=== PATIENT | female | born 1950 | race Asian ===

== ENCOUNTER 2018-05-13 10:58 | Inpatient (IN) | payer SELFPAY ==
[~2018-05-13] VITALS: Ht 162.6 cm; Wt 54.9 kg
[2018-05-13 11:01] VITALS: BP 171/75
[2018-05-13] MEDS ORDERED: Sodium Chloride 500ML 500 ML IV ONE (11:25)
[2018-05-13 11:54] LABS: APPEARANCE,URINE CLEAR; BILIRUBIN, URINE NEGATIVE (NEGATIVE); GLUCOSE, URINE (UA) NEGATIVE (NEGATIVE); KETONES,URINE 2+ (NEGATIVE); LEUKOCYTE ESTERASE ,URINE 3+ (NEGATIVE); NITRITE,URINE NEGATIVE (NEGATIVE); PH,URINE 6 (4.5-8.0); PROTEIN,URINE 1+ (NEGATIVE); UROBILINOGEN,URINE NORMAL MG/DL (0.0-1.0)
[2018-05-13 11:54] LABS: BASOPHILS % (AUTO) 0.8 % (0.0-2.0); EOSINOPHILS % (AUTO) 0.6 % (0.0-3.0); HEMATOCRIT 43.2 % (37.0-47.0); HEMOGLOBIN 14.3 G/DL (12.0-16.0); LYMPHOCYTES % (AUTO) 12.2 % (20.0-45.0); MEAN CORPUSCULAR VOLUME 88 FL (80-99); MONOCYTES % (AUTO) 3.8 % (1.0-10.0); NEUTROPHILS % (AUTO) 82.7 % (45.0-75.0); PLATELET COUNT 245 K/UL (150-450); RED BLOOD COUNT 4.91 M/UL (4.20-5.40); WHITE BLOOD COUNT 5.8 K/UL (4.8-10.8)
[2018-05-13 11:56] LABS: COLOR,URINE YELLOW
[2018-05-13 12:05] LABS: ANION GAP 9 mmol/L (5-15); BLOOD UREA NITROGEN 16 mg/dL (7-18); CALCIUM 8.8 MG/DL (8.5-10.1); CARBON DIOXIDE 26 MMOL/L (21-32); CHLORIDE 105 MMOL/L (98-107); CREATININE 0.6 MG/DL (0.55-1.30); POTASSIUM 3.6 MMOL/L (3.5-5.1); SODIUM 140 MMOL/L (136-145)
[2018-05-13 12:19] LABS: ALANINE AMINOTRANSFERASE 14 U/L (12-78); ALBUMIN 3.4 G/DL (3.4-5.0); ALBUMIN/GLOBULIN RATIO 0.9 (1.0-2.7); ALKALINE PHOSPHATASE 85 U/L (46-116); ASPARTATE AMINO TRANSFERASE 15 U/L (15-37); BILIRUBIN,TOTAL 0.4 MG/DL (0.2-1.0); CKMB 0.7 NG/ML (0.0-3.6); CREATINE KINASE 58 U/L (26-308)
[2018-05-13 12:41] VITALS: BP 160/79
[2018-05-13] MEDS ORDERED: cefTRIAXone 1 GM in NS 55 ML IVPB ONE (13:00)
[2018-05-13] MEDS ORDERED: Isovue-300 100ml vial INJ PRN (13:00)
--- NOTE | 2018-05-13 13:05 | Emergency Room Report ---
History of Present Illness General Chief Complaint: Abdominal Pain Source: Patient, Medical Record Present Illness HPI Patient present with complaints of epigastric abdominal pain increased nausea vomiting ongoing for the past one to 2 days denies any diarrhea and eyes any chest pain or shortness of breath patient had some questionable flank discomfort as well however denies any dysuria Denies any chest pain denies any trauma Pain is 4 out of 10 diffuse in nature at this time Allergies: Coded Allergies: No Known Allergies (Unverified , 05/13/18) Patient History Past Medical History: see triage record Pertinent Family History: none Reviewed Nursing Documentation: PMH: Agreed; PSxH: Agreed Nursing Documentation-PM Past Medical History: No History, Except For Hx Cancer: Yes - Stomach cancer surgery 20 years ago; Review of Systems All Other Systems: negative except mentioned in HPI Physical Exam Vital Signs Date Time Temp Pulse Resp B/P (MAP) Pulse Ox O2 Delivery O2 Flow Rate FiO2 05/13/18 10:52 97.3 84 18 150/86 98 Room Air 97.3 Sp02 EP Interpretation: reviewed, normal General Appearance: mild distress - Appears uncomfortable, in pain Head: normocephalic, atraumatic Eyes: bilateral eye PERRL, bilateral eye EOMI ENT: hearing grossly normal, normal pharynx, TMs + canals normal, uvula midline Neck: full range of motion, supple, no meningismus, no bony tend Respiratory: lungs clear, normal breath sounds, no rhonchi, no respiratory distress, no retraction, no accessory muscle use Cardiovascular #1: normal peripheral pulses, regular rate, rhythm, no edema, no gallop, no JVD, no murmur Gastrointestinal: normal bowel sounds, soft, no mass, no organomegaly, non- distended, no guarding, no hernia, no pulsatile mass, no rebound, tenderness - Epigastric region Genitourinary: no CVA tenderness Musculoskeletal: normal inspection Neurologic: oriented x3, responsive, legal cashier III-XII nml as tested, motor strength/ tone normal, sensory intact Psychiatric: mood/affect normal Skin: normal color, no rash, warm/dry, palpation normal Lymphatic: normal inspection, no adenopathy Medical Decision Making Diagnostic Impression: Primary Impression: Cholecystitis ER Course With the history exam and presentation, multiple differentials considered, including but not limited to appendicitis, gastritis, cholecystitis, diverticulitis Given the patient's presentation and discomfort she is provided with pain medicine extensive blood work is initiated Patient's white blood cell count was elevated CAT scan at this time reveals findings consistent and concerning for cholecystitis Patient is provided with further antibiotics IV hydration and requires inpatient care Labs Test 05/13/18 11:40 05/13/18 11:43 White Blood Count 5.8 K/UL (4.8-10.8) Red Blood Count 4.91 M/UL (4.20-5.40) Hemoglobin 14.3 G/DL (12.0-16.0) Hematocrit 43.2 % (37.0-47.0) Mean Corpuscular Volume 88 FL (80-99) Mean Corpuscular Hemoglobin 29.1 PG (27.0-31.0) Mean Corpuscular Hemoglobin Concent 33.1 G/DL (32.0-36.0) Red Cell Distribution Width 11.0 % (11.6-14.8) Platelet Count 245 K/UL (150-450) Mean Platelet Volume 7.0 FL (6.5-10.1) Neutrophils (%) (Auto) 82.7 % (45.0-75.0) Lymphocytes (%) (Auto) 12.2 % (20.0-45.0) Monocytes (%) (Auto) 3.8 % (1.0-10.0) Eosinophils (%) (Auto) 0.6 % (0.0-3.0) Basophils (%) (Auto) 0.8 % (0.0-2.0) Sodium Level 140 MMOL/L (136-145) Potassium Level 3.6 MMOL/L (3.5-5.1) Chloride Level 105 MMOL/L (98-107) Carbon Dioxide Level 26 MMOL/L (21-32) Anion Gap 9 mmol/L (5-15) Blood Urea Nitrogen 16 mg/dL (7-18) Creatinine 0.6 MG/DL (0.55-1.30) Estimat Glomerular Filtration Rate > 60 mL/min (>60) Glucose Level 131 MG/DL (74-106) Calcium Level 8.8 MG/DL (8.5-10.1) Total Bilirubin 0.4 MG/DL (0.2-1.0) Aspartate Amino Transf (AST/SGOT) 15 U/L (15-37) Alanine Aminotransferase (ALT/SGPT) 14 U/L (12-78) Alkaline Phosphatase 85 U/L (46-116) Total Creatine Kinase 58 U/L (26-308) Creatine Kinase MB 0.7 NG/ML (0.0-3.6) Creatine Kinase MB Relative Index 1.2 Troponin I 0.000 ng/mL (0.000-0.056) Total Protein 7.2 G/DL (6.4-8.2) Albumin 3.4 G/DL (3.4-5.0) Globulin 3.8 g/dL Albumin/Globulin Ratio 0.9 (1.0-2.7) Lipase 106 U/L (73-393) Urine Color Yellow Urine Appearance Clear Urine pH 6 (4.5-8.0) Urine Specific [place] 1.020 (1.005-1.035) Urine Protein 1+ (NEGATIVE) Urine Glucose (UA) Negative (NEGATIVE) Urine Ketones 2+ (NEGATIVE) Urine Blood 2+ (NEGATIVE) Urine Nitrite Negative (NEGATIVE) Urine Bilirubin Negative (NEGATIVE) Urine Urobilinogen Normal MG/DL (0.0-1.0) Urine Leukocyte Esterase 3+ (NEGATIVE) Urine RBC 2-4 /HPF (0 - 2) Urine WBC 10-15 /HPF (0 - 2) Urine Squamous Epithelial Cells Few /LPF (NONE/OCC) Urine Bacteria Few /HPF (NONE) Urine Mucus Few /LPF (NONE/OCC) Rhythm Strip Diag. Results EP Interpretation: yes Rate: 66 Rhythm: NSR, no PVC's, no ectopy CT/MRI/US Diagnostic Results CT/MRI/US Diagnostic Results : Impression CT abdomen pelvisImpression: Limited evaluation of the GI tract, due to lack of enteric contrast administration Evidence of prior distal gastrectomy and gastrojejunostomy. Per discussion with ER physician, patient has history of gastric surgery for cancer. Dilated gallbladder with pericholecystic edema and a stone in the gallbladder neck. Appearance raises concern for acute cholecystitis. Consider nuclear medicine hepatobiliary scan for further evaluation if clinically indicated Markedly dilated extrahepatic bile ducts and moderately dilated central intrahepatic bile ducts. Significance of this is uncertain, as there is no definite downstream obstructive lesion demonstrated. This could be due to alterations in the duodenal anatomy related to the prior gastroduodenal surgery. Recommend correlation with liver function tests, consider ERCP for better characterization if clinically indicated. Note that the dilated extra hepatic ducts result in some and extrinsic compression on the main portal vein and right portal vein Mildly ectatic pancreatic duct. Atrophic pancreas Incidental findings as noted, including mild degenerative lumbar spondylosis, posterior dependent pulmonary atelectatic changes Findings discussed by phone with Dr. Muir the time of interpretation Last Vital Signs Date Time Temp Pulse Resp B/P (MAP) Pulse Ox O2 Delivery O2 Flow Rate FiO2 05/13/18 12:41 97.3 88 17 160/79 98 Room Air 97.3 Status: improved Disposition: ADMITTED INPATIENT Condition: Serious Referrals: NOT CHOSEN IPA/,REFERRING (PCP) Nayely Muir DO May 13, 2018 13:05
[2018-05-13] MEDS ORDERED: Morphine Sulfate 4mg/ml Inj (IV/IM USE ONLY) ONE (13:06)
[2018-05-13] MEDS ORDERED: Morphine Sulfate 4mg/ml Inj (IV/IM USE ONLY) IVP ONE (13:15)
[2018-05-13] MEDS ORDERED: Piperacillin/Tazobactam 3.375 GM in NS 110 ML IVPB ONE (13:45)
--- NOTE | 2018-05-13 14:00 | Diagnostic Imaging Report ---
Clinical Indication: Epigastric abdominal pain and increased nausea and vomiting Technique: No oral contrast utilized, per emergency room physician request IV administration nonionic contrast. Venous phase spiral acquisition obtained through the abdomen and pelvis. Multiplanar reconstructions were generated. Total dose length product 617.15 mGycm. CTDIvol(s) 11.9 mGy. Dose reduction achieved using automated exposure control Comparison: none Findings: There is a large calcified gallstone measuring 14 mm diameter within the gallbladder neck. The gallbladder wall is edematous. There is no significant pericholecystic inflammation, however. The common hepatic duct and common bile duct are massively dilated, common bile duct measuring up to 2.2 cm in diameter. However, no definite downstream obstructive lesion is demonstrated. There is also mild to moderate central intrahepatic biliary ductal dilatation. The dilated common bile duct actually results in extrinsic compression on the main portal vein as well as on the right portal vein. No focal liver lesions. The pancreatic duct is also ectatic. The pancreas is somewhat atrophic. The spleen, adrenals, kidneys are all unremarkable. No retroperitoneal or mesenteric mass or adenopathy. No pelvic mass or adenopathy. Uterus and adnexal structures appear unremarkable. Lack of enteric contrast limits assessment of the GI tract. Although no surgical sutures or clips are demonstrated, the gastric antrum and first portion of the duodenum are not definitely demonstrated, raising possibility of prior partial gastrectomy. A few prominent small bowel loops are seen in the epigastric region. No other small bowel distention is demonstrated. The appendix is normal. There is no evidence of diverticulosis or diverticulitis. No free or loculated intraperitoneal gas or fluid is evident. The distal esophagus is unremarkable. The bones are unremarkable except for mild degenerative lumbar spondylosis changes. The included lung bases demonstrate posterior dependent atelectatic changes. Impression: Limited evaluation of the GI tract, due to lack of enteric contrast administration Evidence of prior distal gastrectomy and gastrojejunostomy. Per discussion with ER physician, patient has history of gastric surgery for cancer. Dilated gallbladder with pericholecystic edema and a stone in the gallbladder neck. Appearance raises concern for acute cholecystitis. Consider nuclear medicine hepatobiliary scan for further evaluation if clinically indicated Markedly dilated extrahepatic bile ducts and moderately dilated central intrahepatic bile ducts. Significance of this is uncertain, as there is no definite downstream obstructive lesion demonstrated. This could be due to alterations in the duodenal anatomy related to the prior gastroduodenal surgery. Recommend correlation with liver function tests, consider ERCP for better characterization if clinically indicated. Note that the dilated extra hepatic ducts result in some and extrinsic compression on the main portal vein and right portal vein Mildly ectatic pancreatic duct. Atrophic pancreas Incidental findings as noted, including mild degenerative lumbar spondylosis, posterior dependent pulmonary atelectatic changes Findings discussed by phone with Dr. Muir the time of interpretation The CT scanner at [facility] is accredited by the [employer] and the scans are performed using protocols designed to limit radiation exposure to as low as reasonably achievable to attain images of sufficient resolution adequate for diagnostic evaluation.
--- NOTE | 2018-05-13 14:21 | Diagnostic Imaging Report ---
Indication: Chest pain Technique: One view of the chest Comparison: none Findings: The heart size is normal. The aorta is somewhat elongated and calcified. The lungs and pleural spaces are clear. Impression: No acute process
[2018-05-13 14:58] VITALS: BP 148/66
[2018-05-13] MEDS ORDERED: NKM (15:00)
[2018-05-13] MEDS ORDERED: Morphine Sulfate 2mg/ml Inj ONE (15:28)
[2018-05-13] MEDS ORDERED: Morphine Sulfate 2mg/ml Inj IVP ONE (15:30)
[2018-05-13 15:57] VITALS: BP 137/86
[2018-05-13] MEDS ORDERED: D5 1/2NS w/KCl 20mEq 1,000 ML IV SCH (18:15)
[2018-05-13] MEDS: Morphine Sulfate 2mg/ml Inj IVP PRN (19:29)
[2018-05-13] MEDS: D5 1/2NS w/KCl 20mEq 1,000 ML IV SCH (19:55)
[2018-05-13 20:00] VITALS: BP 141/82
[2018-05-13] MEDS: Piperacillin/Tazobactam 3.375 GM in NS 110 ML IVPB SCH (21:43)
[2018-05-14] VITALS: BP 141/85
[2018-05-14 04:00] VITALS: BP 136/86
[2018-05-14] MEDS: Piperacillin/Tazobactam 3.375 GM in NS 110 ML IVPB SCH ×3 (05:10→21:19)
--- NOTE | 2018-05-14 06:13 | Consultation ---
Consult Note Consult Note Oncology Consultation REQ MD: Nayely Cameron DOS: 05/14/2018 RFC: Stomach cancer eval Chief Complaint: Abdominal Pain ID [id number] old female presents with complaints of epigastric abdominal pain increased nausea vomiting ongoing for the past one to 2 days denies any diarrhea and eyes any chest pain or shortness of breath patient had some questionable flank discomfort as well however denies any dysuria Denies any chest pain denies any trauma Pain is 4 out of 10 diffuse in nature at this time Does have a history of stomach surgery before and onc consulted Coded Allergies: No Known Allergies (Unverified , 05/13/18) Patient History Past Medical History: see triage record Pertinent Family History: none Reviewed Nursing Documentation: PMH: Agreed; PSxH: Agreed Past Medical History: No History, Except For Hx Cancer: Yes - Stomach cancer surgery 20 years ago; ER ROS - General Review of Systems All Other Systems: negative except mentioned in HPI ER Physical Exam - General Physical Exam Vital Signs Date Time Temp Pulse Resp B/P (MAP) Pulse Ox O2 Delivery O2 Flow Rate FiO2 05/13/18 10:52 97.3 84 18 150/86 98 Room Air 97.3 Sp02 EP Interpretation: reviewed, normal General Appearance: mild distress uncomfortable Head: normocephalic, atraumatic Eyes: bilateral eye PERRL, bilateral eye EOMI ENT: hearing grossly normal, normal pharynx, Neck: full range of motion, supple Respiratory: lungs clear, normal breath sounds, no rhonchi Cardiovascular: normal peripheral pulses, regular rate, rhythm, no edema, no gallop, no JVD, no murmur Gastrointestinal: normal bowel sounds, soft, no mass Genitourinary: no CVA tenderness Musculoskeletal: normal inspection Neurologic: oriented x3, responsive, egg sorter III-XII nml as tested Psychiatric: mood/affect normal Skin: normal color, no rash, warm/dry Lymphatic: normal inspection Labs Test 05/13/18 11:40 05/13/18 11:43 White Blood Count 5.8 K/UL (4.8-10.8) Red Blood Count 4.91 M/UL (4.20-5.40) Hemoglobin 14.3 G/DL (12.0-16.0) Hematocrit 43.2 % (37.0-47.0) Mean Corpuscular Volume 88 FL (80-99) Mean Corpuscular Hemoglobin 29.1 PG (27.0-31.0) Mean Corpuscular Hemoglobin Concent 33.1 G/DL (32.0-36.0) Red Cell Distribution Width 11.0 % (11.6-14.8) Platelet Count 245 K/UL (150-450) Mean Platelet Volume 7.0 FL (6.5-10.1) Neutrophils (%) (Auto) 82.7 % (45.0-75.0) Lymphocytes (%) (Auto) 12.2 % (20.0-45.0) Monocytes (%) (Auto) 3.8 % (1.0-10.0) Eosinophils (%) (Auto) 0.6 % (0.0-3.0) Basophils (%) (Auto) 0.8 % (0.0-2.0) Sodium Level 140 MMOL/L (136-145) Potassium Level 3.6 MMOL/L (3.5-5.1) Chloride Level 105 MMOL/L (98-107) Carbon Dioxide Level 26 MMOL/L (21-32) Anion Gap 9 mmol/L (5-15) Blood Urea Nitrogen 16 mg/dL (7-18) Creatinine 0.6 MG/DL (0.55-1.30) Estimat Glomerular Filtration Rate > 60 mL/min (>60) Glucose Level 131 MG/DL (74-106) Calcium Level 8.8 MG/DL (8.5-10.1) Total Bilirubin 0.4 MG/DL (0.2-1.0) Aspartate Amino Transf (AST/SGOT) 15 U/L (15-37) Alanine Aminotransferase (ALT/SGPT) 14 U/L (12-78) Alkaline Phosphatase 85 U/L (46-116) Total Creatine Kinase 58 U/L (26-308) Creatine Kinase MB 0.7 NG/ML (0.0-3.6) Creatine Kinase MB Relative Index 1.2 Troponin I 0.000 ng/mL (0.000-0.056) Total Protein 7.2 G/DL (6.4-8.2) Albumin 3.4 G/DL (3.4-5.0) Globulin 3.8 g/dL Albumin/Globulin Ratio 0.9 (1.0-2.7) Lipase 106 U/L (73-393) Urine Color Yellow Urine Appearance Clear Urine pH 6 (4.5-8.0) Urine Specific [place] 1.020 (1.005-1.035) Urine Protein 1+ (NEGATIVE) Urine Glucose (UA) Negative (NEGATIVE) Urine Ketones 2+ (NEGATIVE) Urine Blood 2+ (NEGATIVE) Urine Nitrite Negative (NEGATIVE) Urine Bilirubin Negative (NEGATIVE) Urine Urobilinogen Normal MG/DL (0.0-1.0) Urine Leukocyte Esterase 3+ (NEGATIVE) Urine RBC 2-4 /HPF (0 - 2) Urine WBC 10-15 /HPF (0 - 2) Urine Squamous Epithelial Cells Few /LPF (NONE/OCC) Urine Bacteria Few /HPF (NONE) Urine Mucus Few /LPF (NONE/OCC) Assessment and Recs: # Gastric cancer, s/p surgery in the past (20 y ago), currently with no evidence of disease --> imaging to be reviewed, with CT, Evidence of prior distal gastrectomy and gastrojejunostomy. Per discussion with ER physician, patient has history of gastric surgery for cancer. --> CEA ordered # Leukocytosis -- had this earlier prior to admission potentially related to infection --> appears to have resolved at this time # Cholecystitis - with the history exam and presentation, multiple differentials considered, including but not limited to appendicitis, gastritis, cholecystitis, diverticulitis --> antibiotics as needed --> surgery evaluation if requires choly --> HIDA may be considered # Abdominal pain with nausea --> supportive measures and surgery to eval Appreciate consultation greatly! Reginald Abdalla MD May 14, 2018 06:13
[2018-05-14 07:35] LABS: INR 0.9 (0.9-1.1)
[2018-05-14 07:46] LABS: HEMATOCRIT 42.4 % (37.0-47.0); HEMOGLOBIN 14.6 G/DL (12.0-16.0); MEAN CORPUSCULAR VOLUME 88 FL (80-99); PLATELET COUNT 237 K/UL (150-450); RED BLOOD COUNT 4.83 M/UL (4.20-5.40); RED CELL DISTRIBUTION WIDTH 11.2 % (11.6-14.8); WHITE BLOOD COUNT 12.2 K/UL (4.8-10.8)
[2018-05-14 07:48] LABS: ALANINE AMINOTRANSFERASE 54 U/L (12-78); ALBUMIN 3.1 G/DL (3.4-5.0); ALBUMIN/GLOBULIN RATIO 0.8 (1.0-2.7); ALKALINE PHOSPHATASE 110 U/L (46-116); ANION GAP 10 mmol/L (5-15); ASPARTATE AMINO TRANSFERASE 39 U/L (15-37); BILIRUBIN,TOTAL 0.7 MG/DL (0.2-1.0); BLOOD UREA NITROGEN 13 mg/dL (7-18); CALCIUM 8.6 MG/DL (8.5-10.1); CARBON DIOXIDE 26 MMOL/L (21-32); CHLORIDE 103 MMOL/L (98-107); CREATININE 0.6 MG/DL (0.55-1.30); POTASSIUM 3.3 MMOL/L (3.5-5.1); SODIUM 139 MMOL/L (136-145)
[2018-05-14 08:00] VITALS: BP 135/76
[2018-05-14] MEDS: D5 1/2NS w/KCl 20mEq 1,000 ML IV SCH ×3 (08:20→21:19)
[2018-05-14] MEDS ORDERED: Tubing IV Secondary IV ONE (11:39)
--- NOTE | 2018-05-14 11:43 | Consultation ---
History of Present Illness General Date patient seen: May 14, 2018 Chief Complaint: Abdominal Pain Reason for Consultation: abdominal pain Present Illness HPI [id number] presented with abdominal pain, nausea, emesis for 2-3 days. Pain epigastric / RUQ, 4/10, worse with food. In ED had CT scan which demonstrated stone in neck of GB with thickening. LFTs nml. no leukocytosis on admission. Surgery called to evaluate. patient seen, chart reviewed, patient examined. Allergies: Coded Allergies: No Known Allergies (Unverified , 05/13/18) Medication History Scheduled No Known Medications* (NKM - No Known Medications*), 0 ., (Reported) Patient History History Provided By: Patient, Medical Record, PMD Healthcare decision maker N Resuscitation status Full Code Advanced Directive on File No Past Medical/Surgical History Past Medical/Surgical History: (1) Cholecystitis Review of Systems All Other Systems: negative except mentioned in HPI Physical Exam General Appearance: no apparent distress Lines, tubes and drains: peripheral HEENT: mucous membranes moist Neck: normal inspection Respiratory/Chest: normal breath sounds, no respiratory distress, no accessory muscle use Cardiovascular/Chest: regular rhythm Abdomen: soft, no organomegaly, no mass, guarding, tender Extremities: normal inspection Skin Exam: warm/dry Neurologic: alert, oriented x 3, responsive Last 24 Hour Vital Signs Date Time Temp Pulse Resp B/P (MAP) Pulse Ox O2 Delivery O2 Flow Rate FiO2 05/14/18 09:00 Room Air 05/14/18 08:00 98.6 106 19 135/76 (95) 97 98.6 05/14/18 04:00 98.3 88 18 136/86 (103) 96 98.3 05/14/18 00:00 97.5 89 18 141/85 (103) 95 97.5 05/13/18 21:00 Room Air 05/13/18 20:00 97.3 89 19 141/82 (101) 94 97.3 05/13/18 15:57 98.3 69 20 137/86 (103) 93 98.3 05/13/18 15:51 Room Air 05/13/18 15:31 98.3 05/13/18 15:31 97.3 05/13/18 15:20 97.3 76 16 148/66 98 Room Air 97.3 05/13/18 14:58 76 16 148/66 98 Room Air 05/13/18 14:00 97.3 05/13/18 13:08 97.3 05/13/18 12:41 97.3 88 17 160/79 98 Room Air 97.3 Intake and Output 05/13/18 05/14/18 19:00 07:00 Intake Total 437.5 ml Balance 437.5 ml Intake IV Total 437.5 ml # Voids 1 2 Laboratory Tests Test 05/13/18 11:40 05/13/18 11:43 05/13/18 18:10 05/14/18 06:45 White Blood Count 5.8 K/UL (4.8-10.8) 12.2 K/UL (4.8-10.8) #H Red Blood Count 4.91 M/UL (4.20-5.40) 4.83 M/UL (4.20-5.40) Hemoglobin 14.3 G/DL (12.0-16.0) 14.6 G/DL (12.0-16.0) Hematocrit 43.2 % (37.0-47.0) 42.4 % (37.0-47.0) Mean Corpuscular Volume 88 FL (80-99) 88 FL (80-99) Mean Corpuscular Hemoglobin 29.1 PG (27.0-31.0) 30.2 PG (27.0-31.0) Mean Corpuscular Hemoglobin Concent 33.1 G/DL (32.0-36.0) 34.4 G/DL (32.0-36.0) Red Cell Distribution Width 11.0 % (11.6-14.8) L 11.2 % (11.6-14.8) L Platelet Count 245 K/UL (150-450) 237 K/UL (150-450) Mean Platelet Volume 7.0 FL (6.5-10.1) 7.2 FL (6.5-10.1) Neutrophils (%) (Auto) 82.7 % (45.0-75.0) H % (45.0-75.0) Lymphocytes (%) (Auto) 12.2 % (20.0-45.0) L % (20.0-45.0) Monocytes (%) (Auto) 3.8 % (1.0-10.0) % (1.0-10.0) Eosinophils (%) (Auto) 0.6 % (0.0-3.0) % (0.0-3.0) Basophils (%) (Auto) 0.8 % (0.0-2.0) % (0.0-2.0) Sodium Level 140 MMOL/L (136-145) 139 MMOL/L (136-145) Potassium Level 3.6 MMOL/L (3.5-5.1) 3.3 MMOL/L (3.5-5.1) L Chloride Level 105 MMOL/L (98-107) 103 MMOL/L (98-107) Carbon Dioxide Level 26 MMOL/L (21-32) 26 MMOL/L (21-32) Anion Gap 9 mmol/L (5-15) 10 mmol/L (5-15) Blood Urea Nitrogen 16 mg/dL (7-18) 13 mg/dL (7-18) Creatinine 0.6 MG/DL (0.55-1.30) 0.6 MG/DL (0.55-1.30) Estimat Glomerular Filtration Rate > 60 mL/min (>60) > 60 mL/min (>60) Glucose Level 131 MG/DL (74-106) H 173 MG/DL (74-106) H Calcium Level 8.8 MG/DL (8.5-10.1) 8.6 MG/DL (8.5-10.1) Total Bilirubin 0.4 MG/DL (0.2-1.0) 0.7 MG/DL (0.2-1.0) Aspartate Amino Transf (AST/SGOT) 15 U/L (15-37) 39 U/L (15-37) H Alanine Aminotransferase (ALT/SGPT) 14 U/L (12-78) 54 U/L (12-78) Alkaline Phosphatase 85 U/L (46-116) 110 U/L (46-116) Total Creatine Kinase 58 U/L (26-308) Creatine Kinase MB 0.7 NG/ML (0.0-3.6) Creatine Kinase MB Relative Index 1.2 Troponin I 0.000 ng/mL (0.000-0.056) Total Protein 7.2 G/DL (6.4-8.2) 7.1 G/DL (6.4-8.2) Albumin 3.4 G/DL (3.4-5.0) 3.1 G/DL (3.4-5.0) L Globulin 3.8 g/dL 4.0 g/dL Albumin/Globulin Ratio 0.9 (1.0-2.7) L 0.8 (1.0-2.7) L Lipase 106 U/L (73-393) Urine Color Yellow Urine Appearance Clear Urine pH 6 (4.5-8.0) Urine Specific [place] 1.020 (1.005-1.035) Urine Protein 1+ (NEGATIVE) H Urine Glucose (UA) Negative (NEGATIVE) Urine Ketones 2+ (NEGATIVE) H Urine Blood 2+ (NEGATIVE) H Urine Nitrite Negative (NEGATIVE) Urine Bilirubin Negative (NEGATIVE) Urine Urobilinogen Normal MG/DL (0.0-1.0) Urine Leukocyte Esterase 3+ (NEGATIVE) H Urine RBC 2-4 /HPF (0 - 2) H Urine WBC 10-15 /HPF (0 - 2) H Urine Squamous Epithelial Cells Few /LPF (NONE/OCC) Urine Bacteria Few /HPF (NONE) Urine Mucus Few /LPF (NONE/OCC) H Carcinoembryonic Antigen 1.5 ng/mL (0.0-4.7) Differential Total Cells Counted 100 Neutrophils % (Manual) 93 % (45-75) H Lymphocytes % (Manual) 2 % (20-45) L Monocytes % (Manual) 2 % (1-10) Eosinophils % (Manual) 0 % (0-3) Basophils % (Manual) 0 % (0-2) Band Neutrophils 3 % (0-8) Platelet Estimate Adequate Platelet Morphology Normal Red Blood Cell Morphology Normal Prothrombin Time 9.7 SEC (9.30-11.50) Prothromb Time International Ratio 0.9 (0.9-1.1) Activated Partial Thromboplast Time 29 SEC (23-33) Microbiology Date/Time Source Procedure Growth Status 05/13/18 11:43 Urine,Clean Catch Urine Culture - Preliminary Gram Negative Bacillus 1 Gram Negative Bacillus 2 Resulted Height (Feet): 5 Height (Inches): 4.00 Weight (Pounds): 121 Medications Current Medications Medications (Trade) Dose Ordered Sig/Ryan Route PRN Reason Start Time Stop Time Status Last Admin Dose Admin Dextrose/ Electrolytes 1,000 ml @ 75 mls/hr [id number] IV 05/13/18 19:00 06/12/18 18:59 05/13/18 19:55 Iopamidol (Isovue-300 100ml) 100 ml NOW PRN INJ Radiology Procedure 05/13/18 13:00 Morphine Sulfate (Morphine Sulfate) 2 mg Q4H PRN IVP For Pain 05/13/18 18:15 05/20/18 18:14 05/13/18 19:29 Ondansetron HCl (Zofran) 4 mg Q6H PRN IVP Nausea & Vomiting 05/13/18 18:45 06/12/18 18:44 05/14/18 05:06 Piperacillin Sod/ Tazobactam Sod 3.375 gm/Sodium Chloride 110 ml @ 27.5 mls/hr EVERY 8 HOURS IVPB 05/13/18 22:00 05/18/18 21:59 05/14/18 05:10 Assessment/Plan Problem List: (1) Cholecystitis Assessment & Plan: Acute cholecystitis leukocytosis LFT okay still with pain CT w/ is a large calcified gallstone measuring 14 mm diameter within the gallbladder neck. The gallbladder wall is edematous. There is no significant pericholecystic inflammation, however. The common hepatic duct and common bile duct are massively dilated, common bile duct measuring up to 2.2 cm in diameter. However, no definite downstream obstructive lesion is demonstrated. There is also mild to moderate central intrahepatic biliary ductal dilatation. The dilated common bile duct actually results in extrinsic compression on the main portal vein as well as on the right portal vein. Pending MRCP NPO IV fluids IV Abx appreciate GI input ICD Codes: K81.9 - Cholecystitis, unspecified SNOMED: [id number] Status: stable Gary Rubio May 14, 2018 11:43
--- NOTE | 2018-05-14 11:59 | GI Initial Consult Note ---
History of Present Illness General Date patient seen: May 14, 2018 Time patient seen: 14:26 Reason for Hospitalization: Abdominal Pain Referring physician: JAYME ARREDONDO Reason for Consultation: abdominal pain Present Illness HPI Patient present with complaints of epigastric abdominal pain increased nausea vomiting ongoing for the past one to 2 days denies any diarrhea and eyes any chest pain or shortness of breath patient had some questionable flank discomfort as well however denies any dysuria Denies any chest pain denies any trauma Pain is 4 out of 10 diffuse in nature at this time GI consulted for abdominal pain. Pt seen, awake A&Ox4 NAD c/o of severe abdominal pain. Patient has history of gastric CA s/p evidence of prior distal gastrectomy and gastrojejunostomy as seen on recent CT. CT reviewed, showed that patient had CBD dilation of 2.2 cm in which a MRCP was ordered to evaluate. Patient presents today with leukocytosis and no LFT elevation. Unknown history of colonoscopy. Home Meds Reported Medications No Known Medications* (NKM - No Known Medications*) ., 0 ., 0 Refills 05/13/18 Med list reviewed/reconciled: Yes Allergies: Coded Allergies: No Known Allergies (Unverified , 05/13/18) Patient History History Provided By: Patient, Medical Record PMH Narrative Past Medical History: see triage record Pertinent Family History: none Reviewed Nursing Documentation: PMH: Agreed; PSxH: Agreed Nursing Documentation-PMH Past Medical History: No History, Except For Hx Cancer: Yes - Stomach cancer surgery 20 years ago; Social History: Denies: smoking, alcohol use, drug use, other Review of Systems All Other Systems: negative except mentioned in HPI Physical Exam Vital Signs Date Time Temp Pulse Resp B/P (MAP) Pulse Ox O2 Delivery O2 Flow Rate FiO2 05/13/18 10:52 97.3 84 18 150/86 98 Room Air 97.3 Sp02 EP Interpretation: reviewed, normal Labs Laboratory Tests Test 05/13/18 18:10 05/14/18 06:45 Carcinoembryonic Antigen 1.5 ng/mL (0.0-4.7) White Blood Count 12.2 K/UL (4.8-10.8) #H Red Blood Count 4.83 M/UL (4.20-5.40) Hemoglobin 14.6 G/DL (12.0-16.0) Hematocrit 42.4 % (37.0-47.0) Mean Corpuscular Volume 88 FL (80-99) Mean Corpuscular Hemoglobin 30.2 PG (27.0-31.0) Mean Corpuscular Hemoglobin Concent 34.4 G/DL (32.0-36.0) Red Cell Distribution Width 11.2 % (11.6-14.8) L Platelet Count 237 K/UL (150-450) Mean Platelet Volume 7.2 FL (6.5-10.1) Neutrophils (%) (Auto) % (45.0-75.0) Lymphocytes (%) (Auto) % (20.0-45.0) Monocytes (%) (Auto) % (1.0-10.0) Eosinophils (%) (Auto) % (0.0-3.0) Basophils (%) (Auto) % (0.0-2.0) Differential Total Cells Counted 100 Neutrophils % (Manual) 93 % (45-75) H Lymphocytes % (Manual) 2 % (20-45) L Monocytes % (Manual) 2 % (1-10) Eosinophils % (Manual) 0 % (0-3) Basophils % (Manual) 0 % (0-2) Band Neutrophils 3 % (0-8) Platelet Estimate Adequate Platelet Morphology Normal Red Blood Cell Morphology Normal Prothrombin Time 9.7 SEC (9.30-11.50) Prothromb Time International Ratio 0.9 (0.9-1.1) Activated Partial Thromboplast Time 29 SEC (23-33) Sodium Level 139 MMOL/L (136-145) Potassium Level 3.3 MMOL/L (3.5-5.1) L Chloride Level 103 MMOL/L (98-107) Carbon Dioxide Level 26 MMOL/L (21-32) Anion Gap 10 mmol/L (5-15) Blood Urea Nitrogen 13 mg/dL (7-18) Creatinine 0.6 MG/DL (0.55-1.30) Estimat Glomerular Filtration Rate > 60 mL/min (>60) Glucose Level 173 MG/DL (74-106) H Calcium Level 8.6 MG/DL (8.5-10.1) Total Bilirubin 0.7 MG/DL (0.2-1.0) Aspartate Amino Transf (AST/SGOT) 39 U/L (15-37) H Alanine Aminotransferase (ALT/SGPT) 54 U/L (12-78) Alkaline Phosphatase 110 U/L (46-116) Total Protein 7.1 G/DL (6.4-8.2) Albumin 3.1 G/DL (3.4-5.0) L Globulin 4.0 g/dL Albumin/Globulin Ratio 0.8 (1.0-2.7) L General Appearance: well appearing, no apparent distress, alert Head: normocephalic EENT: PERRL/EOMI, normal ENT inspection Neck: supple Respiratory: normal breath sounds, no respiratory distress Cardiovascular: normal rate Gastrointestinal: normal inspection, non tender, soft, normal bowel sounds, non -distended Rectal: deferred Genitourinary: no CVA tenderness Musculoskeletal: normal inspection, back normal Neurologic: normal inspection, alert, oriented x3, responsive Psychiatric: normal inspection, judgement/insight normal, memory normal Skin: normal inspection, normal color, no rash, warm/dry, palpation normal, well hydrated Lymphatic: normal inspection, no adenopathy Current Medications Current Medications Medications (Trade) Dose Ordered Sig/Ryan Route PRN Reason Start Time Stop Time Status Last Admin Dose Admin Dextrose/ Electrolytes 1,000 ml @ 100 mls/hr Q10H IV 05/14/18 11:46 06/13/18 11:45 Iopamidol (Isovue-300 100ml) 100 ml NOW PRN INJ Radiology Procedure 05/13/18 13:00 Morphine Sulfate (Morphine Sulfate) 2 mg Q4H PRN IVP For Pain 05/13/18 18:15 05/20/18 18:14 05/13/18 19:29 Ondansetron HCl (Zofran) 4 mg Q6H PRN IVP Nausea & Vomiting 05/13/18 18:45 06/12/18 18:44 05/14/18 05:06 Piperacillin Sod/ Tazobactam Sod 3.375 gm/Sodium Chloride 110 ml @ 27.5 mls/hr EVERY 8 HOURS IVPB 05/13/18 22:00 05/18/18 21:59 05/14/18 05:10 GI: Plan Problems: (1) Common bile duct (CBD) stricture (2) Cholecystitis Plan hx of gastric CA s/p distal gastrectomy and gastrojejunostomy MRCP reviewed >> suggestive cholecystitis. Stricture at the level of ampulla. At this time, we cannot perform ERCP here at [place] given the patients history of gastrectomy. Given the LFTs are normal at this time, the patient will need to be transferred to a tertiary center that can perform a double balloon assisted ERCP to have a stent placed. Follow up surgical recs for cholecystitis. HIDA scan ordered evaluate ampulla stricture. pain mgmt IVFs fu labs Discussed with Dr. Pereira. Thank you for this patient referral, we will follow. The patient was seen and examined at bedside and all new and available data was reviewed in the patients chart. I agree with the above findings, impression and plan. (Patient seen earlier today. Signature stamp does not reflect patient encounter time.). - MD Rachel Oconnor,[facility] LIQUID CHLORINE OPERATOR May 14, 2018 11:59
[2018-05-14 12:00] VITALS: BP 111/82
--- NOTE | 2018-05-14 12:53 | Diagnostic Imaging Report ---
Indication: Abnormal liver function tests Technique: Coronal and axial single shot fast spin-echo breath-hold, axial T2 FRFSE, 2-D thick slab MRCP, AXIAL 2-D FIESTA fat saturated, axial 3-D dual echo breath-hold, water weighted axial LAVA FLEX, revealed 3-D MRCP images were obtained of the abdomen. MIP reconstructions were generated of the bile ducts Comparison: CT scan of earlier the same day Findings: Large filling defect in the gallbladder neck is consistent with the calculus demonstrated on prior CT. There is also some sludge and possibly some smaller stones within the gallbladder. There is edema of the gallbladder wall again demonstrated. Again demonstrated is dilatation of the common bile duct which measures 2 cm in diameter. It tapers abruptly at the ampulla. No definite ampullary lesion or intraductal filling defect. There is mild ectasia of the pancreatic duct, which measures 5 mm in diameter. Again demonstrated are postsurgical changes of the stomach. The liver, spleen, kidneys, adrenals are all unremarkable. Impression: Markedly dilated extra hepatic bile ducts, abrupt tapering at the ampulla. Findings could just be age-related, but could represent a stricture at the level of the ampulla. Consider evaluation with ERCP if clinically indicated. Nuclear medicine hepatobiliary scan may also be useful to establish bile duct patency. Gallbladder neck stone. Gallbladder distention and edema of the gallbladder wall suspicious for acute cholecystitis. Again, nuclear medicine hepatobiliary scan may be useful to confirm if clinically indicated. Atrophic pancreas with prominent pancreatic duct Postsurgical changes of the stomach, also previously described This agrees with the preliminary interpretation provided overnight by Dr. Carver
[2018-05-14] MEDS: Morphine Sulfate 2mg/ml Inj IVP PRN ×2 (13:44→18:36)
[2018-05-14] MEDS ORDERED: Morphine Sulfate 2mg/ml Inj IVP SCH (14:00)
[2018-05-14 16:00] VITALS: BP 127/43
--- NOTE | 2018-05-14 16:13 | Cardiology Report ---
APPROVED REPORT EKG Measurement Heart [id number] Normal sinus rhythm Normal ECG
[2018-05-14 20:00] VITALS: BP 137/77
--- NOTE | 2018-05-14 23:00 | History and Physical Report ---
DATE OF ADMISSION: 05/13/2018 HISTORY OF PRESENT ILLNESS: The patient does not speak [place]. He is admitted for acute cholecystitis, abnormal imaging findings. The patient also mostly sleeping and does complain of abdominal pain, but denies nausea, vomiting, diarrhea, fever, or chills, but again is a poor historian and also does not speak [place]ovan. Imaging shows dilated gallbladder, evidence of prior gastrectomy, pericholecystic edema, markedly dilated extrahepatic bile ducts and moderately dilated central intrahepatic ducts. Admitted for that reason. The patient also complains of abdominal pain. PAST MEDICAL HISTORY: Denies. PAST SURGICAL HISTORY: The patient has a gastrostomy. It sounds like from imaging also it looks like the patient has distal gastrectomy. ALLERGIES: No known allergies. MEDICATIONS: Currently none. FAMILY HISTORY: Unable to cooperate. SOCIAL HISTORY: Apparently denies smoking, alcohol, or illicit drugs. REVIEW OF SYSTEMS: HEENT: Denies headaches. RESPIRATORY: Denies shortness of breath. Denies cough. CARDIOVASCULAR: Denies chest pain. No orthopnea. GASTROINTESTINAL: Reports abdominal pain. No nausea, vomiting, or constipation. EXTREMITIES: Denies any significant pain. CENTRAL NERVOUS SYSTEM: Denies change in vision or speech pattern. PHYSICAL EXAMINATION: VITAL SIGNS: Temperature 97.5, pulse is 89, and blood pressure 141/85. HEENT: PERRLA. NECK: Supple. No lymphadenopathy. CHEST: Clear to auscultation. GASTROINTESTINAL: Does have epigastric tenderness. No rebound. No organomegaly. Abdomen is soft. EXTREMITIES: No edema. Reflexes in both sides. Moves all 4 extremities. LABORATORY DATA: WBC of 5.8, hemoglobin of 14.3, and platelets 245. Sodium 140, potassium 3.6, chloride 105, BUN of 16, creatinine of 0.6 and glucose of 131. ASSESSMENT AND PLAN: 1. Abdominal pain, rule out acute cholecystitis. The patient has dilated gallbladder with pericholecystic edema and also markedly dilated extrahepatic bile ducts and moderately dilated central intrahepatic ducts. 2. Acute cholecystitis, abnormal CT of the abdomen. Rule out infectious. I have asked Dr. Byers, Dr. Rubio, Dr. Yusef Thornton, Dr. Pereira, and Dr. Reginald Abdalla to see the patient for the above-mentioned diagnoses and treatment and also to rule out any cancer etiology causing on this. Antibiotics as per Dr. Yusef Thornton. Nayely Cameron M.D. DR: SABINA JOB#: [id number] CC:
--- NOTE | 2018-05-14 23:45 | Consultation ---
DATE OF CONSULTATION: 05/14/2018 CONSULTING PHYSICIAN: Yusef Thornton M.D. PRIMARY ATTENDING: Nayely Cameron M.D. REASON FOR CONSULT: Acute cholecystitis. HISTORY OF PRESENT ILLNESS: This is a 67-year-old female, admitted yesterday because of abdominal pain that was epigastric, nausea, and vomiting for 2 days. The patient had no fever or chills. No leukocytosis at the time of admission, but there is leukocytosis today. Communication is limited by language barrier. PAST MEDICAL HISTORY: Significant for stomach cancer operated 20 years ago. ALLERGIES: No known drug allergies. MEDICATIONS: She is getting Zosyn, Zofran, and morphine. SOCIAL HISTORY: She is [place] in origin. Lives at home. No other history obtainable. PHYSICAL EXAMINATION: VITAL SIGNS: Temperature 98.4, pulse 86, and blood pressure 111/82. GENERAL APPEARANCE: No acute distress. HEAD AND NECK: Slightly dry mouth. HEART: Normal rate. LUNGS: Clear. ABDOMEN: Soft. Tender in epigastric and right upper quadrant. EXTREMITIES: Has no edema. NEUROLOGIC: Awake, alert, and oriented x3. LABORATORY DATA: Sodium 139, potassium 3.3, chloride 102, bicarbonate 26, BUN 30, creatinine 0.6, and glucose is 173. WBC 12.2, hemoglobin 14.6, hematocrit 42.4, and platelets 237. UA showed WBC of 10 to 15. Urine culture growing gram-negative rods. CT scan of the abdomen and pelvis showed evidence of distal gastrectomy and gastrojejunostomy. Dilated gallbladder, pericholecystic edema, stone in gallbladder neck. The patient had an MRI of abdomen and MRCP showed mildly dilated extrahepatic bile ducts and abrupt tapering at the ampulla. Findings may be age-related or represent a stricture, gallstone distention, and edema of gallbladder wall, suspicious for acute cholecystitis. IMPRESSION: Cholelithiasis and acute cholecystitis. The patient has pyuria and bacteriuria. Has history of stomach cancer and previous stomach surgery. Continue with Zosyn. We will follow up with this surgical plan for further management. At the end of my exam, I thank Dr. Cameron for involving me in the care of this patient. Yusef Thornton M.D. DR: JESSICA JOB#: [id number] CC: LEOBARDO
[2018-05-15] VITALS: BP 131/71
[2018-05-15 04:00] VITALS: BP 129/74
[2018-05-15] MEDS: Piperacillin/Tazobactam 3.375 GM in NS 110 ML IVPB SCH ×3 (05:22→21:17)
[2018-05-15] MEDS: D5 1/2NS w/KCl 20mEq 1,000 ML IV SCH (07:46)
[2018-05-15 08:00] VITALS: BP 133/85
[2018-05-15 08:16] LABS: HEMATOCRIT 40.6 % (37.0-47.0); HEMOGLOBIN 13.9 G/DL (12.0-16.0); MEAN CORPUSCULAR VOLUME 88 FL (80-99); PLATELET COUNT 225 K/UL (150-450); RED BLOOD COUNT 4.63 M/UL (4.20-5.40); RED CELL DISTRIBUTION WIDTH 11.1 % (11.6-14.8); WHITE BLOOD COUNT 13.5 K/UL (4.8-10.8)
[2018-05-15 08:24] LABS: INR 0.9 (0.9-1.1)
[2018-05-15 08:39] LABS: ALANINE AMINOTRANSFERASE 50 U/L (12-78); ALBUMIN 2.5 G/DL (3.4-5.0); ALBUMIN/GLOBULIN RATIO 0.6 (1.0-2.7); ALKALINE PHOSPHATASE 94 U/L (46-116); ANION GAP 10 mmol/L (5-15); ASPARTATE AMINO TRANSFERASE 28 U/L (15-37); BILIRUBIN,TOTAL 0.7 MG/DL (0.2-1.0); BLOOD UREA NITROGEN 16 mg/dL (7-18); CALCIUM 8.8 MG/DL (8.5-10.1); CARBON DIOXIDE 26 MMOL/L (21-32); CHLORIDE 102 MMOL/L (98-107); CREATININE 0.6 MG/DL (0.55-1.30); POTASSIUM 3.2 MMOL/L (3.5-5.1); SODIUM 138 MMOL/L (136-145)
--- NOTE | 2018-05-15 11:06 | General Surgery Progress Note ---
General Surgery-Progress Note Subjective Additional Comments leukocytosis. pending HIDA. MRCP with possible ampulla stricture Objective Last 24 Hour Vital Signs Date Time Temp Pulse Resp B/P (MAP) Pulse Ox O2 Delivery O2 Flow Rate FiO2 05/15/18 09:11 Room Air 05/15/18 08:14 98.1 05/15/18 08:00 98.0 87 18 133/85 (101) 98 98.0 05/15/18 04:00 98.1 94 19 129/74 (92) 95 98.1 05/15/18 00:00 98.2 98 18 131/71 (91) 94 98.2 05/14/18 21:00 Room Air 05/14/18 20:00 97.6 98 20 137/77 (97) 94 97.6 05/14/18 18:36 99.6 05/14/18 16:00 99.6 63 17 127/43 (71) 95 99.6 05/14/18 12:00 98.4 86 18 111/82 (92) 98.4 I&O Intake and Output 05/14/18 05/15/18 19:00 07:00 Intake Total 210.0 ml 637.5 ml Balance 210.0 ml 637.5 ml Intake IV Total 210.0 ml 637.5 ml # Voids 2 3 Drains: none Cardiovascular: RSR Respiratory: clear Abdomen: soft, flat, non-tender, present bowel sounds Extremities: no cyanosis Laboratory Tests Test 05/15/18 07:30 White Blood Count 13.5 K/UL (4.8-10.8) H Red Blood Count 4.63 M/UL (4.20-5.40) Hemoglobin 13.9 G/DL (12.0-16.0) Hematocrit 40.6 % (37.0-47.0) Mean Corpuscular Volume 88 FL (80-99) Mean Corpuscular Hemoglobin 30.1 PG (27.0-31.0) Mean Corpuscular Hemoglobin Concent 34.3 G/DL (32.0-36.0) Red Cell Distribution Width 11.1 % (11.6-14.8) L Platelet Count 225 K/UL (150-450) Mean Platelet Volume 6.5 FL (6.5-10.1) Neutrophils (%) (Auto) % (45.0-75.0) Lymphocytes (%) (Auto) % (20.0-45.0) Monocytes (%) (Auto) % (1.0-10.0) Eosinophils (%) (Auto) % (0.0-3.0) Basophils (%) (Auto) % (0.0-2.0) Differential Total Cells Counted 100 Neutrophils % (Manual) 88 % (45-75) H Lymphocytes % (Manual) 6 % (20-45) L Monocytes % (Manual) 4 % (1-10) Eosinophils % (Manual) 0 % (0-3) Basophils % (Manual) 0 % (0-2) Band Neutrophils 2 % (0-8) Platelet Estimate Adequate Platelet Morphology Normal Prothrombin Time 10.0 SEC (9.30-11.50) Prothromb Time International Ratio 0.9 (0.9-1.1) Activated Partial Thromboplast Time 34 SEC (23-33) H Sodium Level 138 MMOL/L (136-145) Potassium Level 3.2 MMOL/L (3.5-5.1) L Chloride Level 102 MMOL/L (98-107) Carbon Dioxide Level 26 MMOL/L (21-32) Anion Gap 10 mmol/L (5-15) Blood Urea Nitrogen 16 mg/dL (7-18) Creatinine 0.6 MG/DL (0.55-1.30) Estimat Glomerular Filtration Rate > 60 mL/min (>60) Glucose Level 146 MG/DL (74-106) H Calcium Level 8.8 MG/DL (8.5-10.1) Total Bilirubin 0.7 MG/DL (0.2-1.0) Aspartate Amino Transf (AST/SGOT) 28 U/L (15-37) Alanine Aminotransferase (ALT/SGPT) 50 U/L (12-78) Alkaline Phosphatase 94 U/L (46-116) Total Protein 6.9 G/DL (6.4-8.2) Albumin 2.5 G/DL (3.4-5.0) L Globulin 4.4 g/dL Albumin/Globulin Ratio 0.6 (1.0-2.7) L Plan Problems: (1) Cholecystitis Assessment & Plan: Acute cholecystitis leukocytosis LFT okay still with pain CT w/ is a large calcified gallstone measuring 14 mm diameter within the gallbladder neck. The gallbladder wall is edematous. There is no significant pericholecystic inflammation, however. The common hepatic duct and common bile duct are massively dilated, common bile duct measuring up to 2.2 cm in diameter. However, no definite downstream obstructive lesion is demonstrated. There is also mild to moderate central intrahepatic biliary ductal dilatation. The dilated common bile duct actually results in extrinsic compression on the main portal vein as well as on the right portal vein. MRCP noted pending HIDA NPO IV fluids IV Abx appreciate GI input Gary Rubio May 15, 2018 11:06
--- NOTE | 2018-05-15 11:46 | GI Progress Note ---
Assessment/Plan Problems: (1) Common bile duct (CBD) stricture ICD Codes: K83.1 - Obstruction of bile duct SNOMED: 16589211 (2) Cholecystitis ICD Codes: K81.9 - Cholecystitis, unspecified SNOMED: 05330254 Status: unchanged Status Narrative Discussed with Dr. Pereira. Assessment/Plan hx of gastric CA s/p distal gastrectomy and gastrojejunostomy MRCP reviewed >> suggestive cholecystitis. Stricture at the level of ampulla. At this time, we cannot perform ERCP here at [place] given the patients history of gastrectomy. Given the LFTs are normal at this time, the patient will need to be transferred to a tertiary center that can perform a double balloon assisted ERCP to have a stent placed. Follow up surgical recs for cholecystitis. HIDA scan ordered evaluate ampulla stricture. pain mgmt IVFs fu labs The patient was seen and examined at bedside and all new and available data was reviewed in the patients chart. I agree with the above findings, impression and plan. (Patient seen earlier today. Signature stamp does not reflect patient encounter time.). - Wale Pereira MD Subjective Gastrointestinal/Abdominal: Reports: abdominal pain Objective Last 24 Hour Vital Signs Date Time Temp Pulse Resp B/P (MAP) Pulse Ox O2 Delivery O2 Flow Rate FiO2 05/15/18 09:11 Room Air 05/15/18 08:14 98.1 05/15/18 08:00 98.0 87 18 133/85 (101) 98 98.0 05/15/18 04:00 98.1 94 19 129/74 (92) 95 98.1 05/15/18 00:00 98.2 98 18 131/71 (91) 94 98.2 05/14/18 21:00 Room Air 05/14/18 20:00 97.6 98 20 137/77 (97) 94 97.6 05/14/18 18:36 99.6 05/14/18 16:00 99.6 63 17 127/43 (71) 95 99.6 05/14/18 12:00 98.4 86 18 111/82 (92) 98.4 Intake and Output 05/14/18 05/15/18 19:00 07:00 Intake Total 210.0 ml 637.5 ml Balance 210.0 ml 637.5 ml Intake IV Total 210.0 ml 637.5 ml # Voids 2 3 Laboratory Tests Test 05/15/18 07:30 White Blood Count 13.5 K/UL (4.8-10.8) H Red Blood Count 4.63 M/UL (4.20-5.40) Hemoglobin 13.9 G/DL (12.0-16.0) Hematocrit 40.6 % (37.0-47.0) Mean Corpuscular Volume 88 FL (80-99) Mean Corpuscular Hemoglobin 30.1 PG (27.0-31.0) Mean Corpuscular Hemoglobin Concent 34.3 G/DL (32.0-36.0) Red Cell Distribution Width 11.1 % (11.6-14.8) L Platelet Count 225 K/UL (150-450) Mean Platelet Volume 6.5 FL (6.5-10.1) Neutrophils (%) (Auto) % (45.0-75.0) Lymphocytes (%) (Auto) % (20.0-45.0) Monocytes (%) (Auto) % (1.0-10.0) Eosinophils (%) (Auto) % (0.0-3.0) Basophils (%) (Auto) % (0.0-2.0) Differential Total Cells Counted 100 Neutrophils % (Manual) 88 % (45-75) H Lymphocytes % (Manual) 6 % (20-45) L Monocytes % (Manual) 4 % (1-10) Eosinophils % (Manual) 0 % (0-3) Basophils % (Manual) 0 % (0-2) Band Neutrophils 2 % (0-8) Platelet Estimate Adequate Platelet Morphology Normal Prothrombin Time 10.0 SEC (9.30-11.50) Prothromb Time International Ratio 0.9 (0.9-1.1) Activated Partial Thromboplast Time 34 SEC (23-33) H Sodium Level 138 MMOL/L (136-145) Potassium Level 3.2 MMOL/L (3.5-5.1) L Chloride Level 102 MMOL/L (98-107) Carbon Dioxide Level 26 MMOL/L (21-32) Anion Gap 10 mmol/L (5-15) Blood Urea Nitrogen 16 mg/dL (7-18) Creatinine 0.6 MG/DL (0.55-1.30) Estimat Glomerular Filtration Rate > 60 mL/min (>60) Glucose Level 146 MG/DL (74-106) H Calcium Level 8.8 MG/DL (8.5-10.1) Total Bilirubin 0.7 MG/DL (0.2-1.0) Aspartate Amino Transf (AST/SGOT) 28 U/L (15-37) Alanine Aminotransferase (ALT/SGPT) 50 U/L (12-78) Alkaline Phosphatase 94 U/L (46-116) Total Protein 6.9 G/DL (6.4-8.2) Albumin 2.5 G/DL (3.4-5.0) L Globulin 4.4 g/dL Albumin/Globulin Ratio 0.6 (1.0-2.7) L Height (Feet): 5 Height (Inches): 4.00 Weight (Pounds): 121 General Appearance: WD/WN, no apparent distress, alert Cardiovascular: normal rate Respiratory/Chest: normal breath sounds, no respiratory distress Abdominal Exam: normal bowel sounds, non tender, soft Extremities: normal range of motion, non-tender Tiffanie Ramos NP May 15, 2018 11:46
[2018-05-15 12:00] VITALS: BP 131/71
--- NOTE | 2018-05-15 13:21 | Infectious Diseases Prog Note ---
Assessment/Plan Assessment/Plan A; Cholecystitis Cholelithiasis UTI History of stomach cancer P: Continue Zosyn Will f/u HIDA scan Subjective ROS Limited/Unobtainable: Yes Allergies: Coded Allergies: No Known Allergies (Unverified , 05/13/18) Objective Vital Signs Last 24 Hour Vital Signs Date Time Temp Pulse Resp B/P (MAP) Pulse Ox O2 Delivery O2 Flow Rate FiO2 05/15/18 12:00 96.8 94 18 131/71 (91) 97 96.8 05/15/18 09:11 Room Air 05/15/18 08:14 98.1 05/15/18 08:00 98.0 87 18 133/85 (101) 98 98.0 05/15/18 04:00 98.1 94 19 129/74 (92) 95 98.1 05/15/18 00:00 98.2 98 18 131/71 (91) 94 98.2 05/14/18 21:00 Room Air 05/14/18 20:00 97.6 98 20 137/77 (97) 94 97.6 05/14/18 18:36 99.6 05/14/18 16:00 99.6 63 17 127/43 (71) 95 99.6 Height (Feet): 5 Height (Inches): 4.00 Weight (Pounds): 121 General Appearance: no acute distress HEENT: mucous membranes moist Respiratory/Chest: lungs clear Cardiovascular: normal rate Abdomen: other - RUQ tenderness, soft Extremities: no edema Neurologic/Psychiatric: alert, oriented x 3, responsive Microbiology Date/Time Source Procedure Growth Status 05/13/18 11:43 Urine,Clean Catch Urine Culture - Final Citrobacter Freundii Escherichia Coli Complete Laboratory Tests Test 05/15/18 07:30 White Blood Count 13.5 K/UL (4.8-10.8) H Red Blood Count 4.63 M/UL (4.20-5.40) Hemoglobin 13.9 G/DL (12.0-16.0) Hematocrit 40.6 % (37.0-47.0) Mean Corpuscular Volume 88 FL (80-99) Mean Corpuscular Hemoglobin 30.1 PG (27.0-31.0) Mean Corpuscular Hemoglobin Concent 34.3 G/DL (32.0-36.0) Red Cell Distribution Width 11.1 % (11.6-14.8) L Platelet Count 225 K/UL (150-450) Mean Platelet Volume 6.5 FL (6.5-10.1) Neutrophils (%) (Auto) % (45.0-75.0) Lymphocytes (%) (Auto) % (20.0-45.0) Monocytes (%) (Auto) % (1.0-10.0) Eosinophils (%) (Auto) % (0.0-3.0) Basophils (%) (Auto) % (0.0-2.0) Differential Total Cells Counted 100 Neutrophils % (Manual) 88 % (45-75) H Lymphocytes % (Manual) 6 % (20-45) L Monocytes % (Manual) 4 % (1-10) Eosinophils % (Manual) 0 % (0-3) Basophils % (Manual) 0 % (0-2) Band Neutrophils 2 % (0-8) Platelet Estimate Adequate Platelet Morphology Normal Prothrombin Time 10.0 SEC (9.30-11.50) Prothromb Time International Ratio 0.9 (0.9-1.1) Activated Partial Thromboplast Time 34 SEC (23-33) H Sodium Level 138 MMOL/L (136-145) Potassium Level 3.2 MMOL/L (3.5-5.1) L Chloride Level 102 MMOL/L (98-107) Carbon Dioxide Level 26 MMOL/L (21-32) Anion Gap 10 mmol/L (5-15) Blood Urea Nitrogen 16 mg/dL (7-18) Creatinine 0.6 MG/DL (0.55-1.30) Estimat Glomerular Filtration Rate > 60 mL/min (>60) Glucose Level 146 MG/DL (74-106) H Calcium Level 8.8 MG/DL (8.5-10.1) Total Bilirubin 0.7 MG/DL (0.2-1.0) Aspartate Amino Transf (AST/SGOT) 28 U/L (15-37) Alanine Aminotransferase (ALT/SGPT) 50 U/L (12-78) Alkaline Phosphatase 94 U/L (46-116) Total Protein 6.9 G/DL (6.4-8.2) Albumin 2.5 G/DL (3.4-5.0) L Globulin 4.4 g/dL Albumin/Globulin Ratio 0.6 (1.0-2.7) L Current Medications Medications (Trade) Dose Ordered Sig/Ryan Route PRN Reason Start Time Stop Time Status Last Admin Dose Admin Dextrose/ Electrolytes 1,000 ml @ 100 mls/hr Q10H IV 05/14/18 11:46 06/13/18 11:45 05/14/18 21:19 Iopamidol (Isovue-300 100ml) 100 ml NOW PRN INJ Radiology Procedure 05/13/18 13:00 Mirtazapine (Remeron) 7.5 mg BEDTIME ORAL 05/15/18 21:00 06/14/18 20:59 Morphine Sulfate (Morphine Sulfate) 2 mg Q4H PRN IVP For Pain 05/13/18 18:15 05/20/18 18:14 05/14/18 18:36 Ondansetron HCl (Zofran) 4 mg Q6H PRN IVP Nausea & Vomiting 05/13/18 18:45 06/12/18 18:44 05/15/18 11:25 Piperacillin Sod/ Tazobactam Sod 3.375 gm/Sodium Chloride 110 ml @ 27.5 mls/hr EVERY 8 HOURS IVPB 05/13/18 22:00 05/18/18 21:59 05/15/18 05:22 Yusef Thornton MD May 15, 2018 13:21
--- NOTE | 2018-05-15 14:25 | Diagnostic Imaging Report ---
Indication: Abdominal Pain Technique: 5.5 mCi of technetium 99 m-Choletec was injected intravenously. Planar imaging of the abdomen was then performed every 5 minutes up to 30 minutes and every 10 minutes up to one hour. Oblique views were also obtained. 2 mg of morphine given intravenously Findings: There is prompt uptake within the liver with good washout of radiotracer from the liver on subsequent imaging. There is excretion into the biliary ducts. There is no gallbladder activity during the initial dynamic images and on the two-hour delayed images. Findings consistent with cystic duct obstruction and acute cholecystitis.CT examination demonstrated an enlarged gallbladder with wall thickening. Gallstone also noted at the neck. Bowel activity is demonstrated in a slightly delayed fashion, but nevertheless indicating patency of the common bile duct. Impression: Cystic duct obstruction. Findings consistent with acute cholecystitis.
[2018-05-15 16:00] VITALS: BP 126/70
[2018-05-15] MEDS: Morphine Sulfate 2mg/ml Inj IVP PRN (18:21)
--- NOTE | 2018-05-15 18:37 | Consultation ---
Consult Note Consult Note asked to eval for fluid management and electrolyte imbalance Assessment/Plan Cholecystitis Cholelithiasis UTI History of stomach cancer IV Fluid and K Continue Zosyn Will f/u HIDA scan IV Huber Nick MD May 15, 2018 18:37
--- NOTE | 2018-05-15 18:52 | General Progress Note ---
Assessment/Plan Assessment/Plan Assessment and Recs: # Gastric cancer, s/p surgery in the past (20 y ago), currently with no evidence of disease --> imaging to be reviewed, with CT, Evidence of prior distal gastrectomy and gastrojejunostomy. Per discussion with ER physician, patient has history of gastric surgery for cancer. --> CEA 1.5, is wnl # Leukocytosis -- had this earlier prior to admission potentially related to infection --> appears to be improving # Cholecystitis - with the history exam and presentation, multiple differentials considered, including but not limited to appendicitis, gastritis, cholecystitis, diverticulitis --> antibiotics as needed --> surgery evaluation if requires choly --> Given the LFTs are normal at this time, the patient will need to be transferred to a tertiary center that can perform a double balloon assisted ERCP to have a stent placed. # Abdominal pain with nausea --> supportive measures and surgery to eval --> today better Appreciate consultation greatly! Subjective Constitutional: Denies: no symptoms, chills, diaphoresis, fever, malaise, weakness, other HEENT: Denies: no symptoms, eye pain, blurred vision, tearing, double vision, ear pain, ear discharge, nose pain, nose congestion, throat pain, throat swelling, mouth pain, mouth swelling, other Cardiovascular: Denies: no symptoms, chest pain, edema, irregular heart rate, lightheadedness, palpitations, syncope, other Respiratory: Denies: no symptoms, cough, orthopnea, shortness of breath, SOB with excertion, SOB at rest, sputum, stridor, wheezing, other Gastrointestinal/Abdominal: Denies: no symptoms, abdomen distended, abdominal pain, black stools, tarry stools, blood in stool, constipated, diarrhea, difficulty swallowing, nausea, poor appetite, poor fluid intake, rectal bleeding , vomiting, other Neurologic/Psychiatric: Denies: no symptoms, anxiety, depressed, emotional problems, headache, numbness, paresthesia, pre-existing deficit, seizure, tingling, tremors, weakness, other Endocrine: Denies: no symptoms, excessive sweating, flushing, intolerance to cold, intolerance to heat, increased hunger, increased thirst, increased urine, unexplained weight gain, unexplained weight loss, other Hematologic/Lymphatic: Denies: no symptoms, anemia, easy bleeding, easy bruising, other Allergies: Coded Allergies: No Known Allergies (Unverified , 05/13/18) Subjective Vietnamese speaking, no issues, no complaints Objective Last 24 Hour Vital Signs Date Time Temp Pulse Resp B/P (MAP) Pulse Ox O2 Delivery O2 Flow Rate FiO2 05/15/18 18:49 98.9 05/15/18 18:21 98.9 05/15/18 16:00 98.9 94 18 126/70 (88) 93 98.9 05/15/18 12:00 96.8 94 18 131/71 (91) 97 96.8 05/15/18 09:11 Room Air 05/15/18 08:14 98.1 05/15/18 08:00 98.0 87 18 133/85 (101) 98 98.0 05/15/18 04:00 98.1 94 19 129/74 (92) 95 98.1 05/15/18 00:00 98.2 98 18 131/71 (91) 94 98.2 05/14/18 21:00 Room Air 05/14/18 20:00 97.6 98 20 137/77 (97) 94 97.6 Intake and Output 05/14/18 05/15/18 19:00 07:00 Intake Total 210.0 ml 637.5 ml Balance 210.0 ml 637.5 ml Intake IV Total 210.0 ml 637.5 ml # Voids 2 3 Laboratory Tests 05/15/18 07:30: White Blood Count 13.5H, Red Blood Count 4.63, Hemoglobin 13.9, Hematocrit 40.6 , Mean Corpuscular Volume 88, Mean Corpuscular Hemoglobin 30.1, Mean Corpuscular Hemoglobin Concent 34.3, Red Cell Distribution Width 11.1L, Platelet Count 225, Mean Platelet Volume 6.5, Neutrophils (%) (Auto) , Lymphocytes (%) (Auto) , Monocytes (%) (Auto) , Eosinophils (%) (Auto) , Basophils (%) (Auto) , Differential Total Cells Counted 100, Neutrophils % ( Manual) 88H, Lymphocytes % (Manual) 6L, Monocytes % (Manual) 4, Eosinophils % ( Manual) 0, Basophils % (Manual) 0, Band Neutrophils 2, Platelet Estimate Adequate, Platelet Morphology Normal, Prothrombin Time 10.0, Prothromb Time International Ratio 0.9, Activated Partial Thromboplast Time 34H, Sodium Level 138, Potassium Level 3.2L, Chloride Level 102, Carbon Dioxide Level 26, Anion Gap 10, Blood Urea Nitrogen 16, Creatinine 0.6, Estimat Glomerular Filtration Rate > 60, Glucose Level 146H, Calcium Level 8.8, Total Bilirubin 0.7, Aspartate Amino Transf (AST/SGOT) 28, Alanine Aminotransferase (ALT/SGPT) 50, Alkaline Phosphatase 94, C-Reactive Protein, Quantitative [Pending], Total Protein 6.9, Albumin 2.5L, Globulin 4.4, Albumin/Globulin Ratio 0.6L Height (Feet): 5 Height (Inches): 4.00 Weight (Pounds): 121 General Appearance: no apparent distress EENT: normal ENT inspection Neck: normal alignment Cardiovascular: regular rhythm Respiratory/Chest: lungs clear Abdomen: no organomegaly Extremities: non-tender Edema: 1+ Leg (L), 1+ Leg (R) Edema: mild edema Neurologic: alert Skin: warm/dry Reginald Abdalla MD May 15, 2018 18:52
[2018-05-15] MEDS ORDERED: D5NS w/KCl 40mEq 1000ml 1,000 ML IV SCH (19:30)
[2018-05-15 20:00] VITALS: BP 126/74
--- NOTE | 2018-05-15 20:04 | Pre-Procedure Note/Attestation ---
Pre-Procedure Note/Attestation Complete Prior to Procedure Planned Procedure: not applicable Procedure Narrative: laparoscopic possible open appendectomy with intraoperative cholangiogram Indications for Procedure Pre-Operative Diagnosis: acute cholecystitis Attestation I attest that I discussed the nature of the procedure; its benefits; risks and complications; and alternatives (and the risks and benefits of such alternatives ), prior to the procedure, with the patient (or the patient's legal access representative). I attest that, if there was a reasonable possibility of needing a blood transfusion, the patient (or the patient's legal access representative) was given the [facility] standardized written summary, pursuant to the Felipe [place] Blood Safety Act ([place] Health and Safety Code # 1645, as amended). I attest that I re-evaluated the patient just prior to the surgery and that there has been no change in the patient's H&P, except as documented below: Gary Rubio May 15, 2018 20:04
--- NOTE | 2018-05-15 22:01 | General Progress Note ---
Assessment/Plan Problem List: (1) Cholecystitis ICD Codes: K81.9 - Cholecystitis, unspecified SNOMED: 35956704 (2) Common bile duct (CBD) stricture ICD Codes: K83.1 - Obstruction of bile duct SNOMED: 79724087 Status: progressing Assessment/Plan consulted dr ruth uribeits abx per id afebrile for abnormal cbd discussed w dr miranda Subjective ROS Limited/Unobtainable: Yes Allergies: Coded Allergies: No Known Allergies (Unverified , 05/13/18) Objective Last 24 Hour Vital Signs Date Time Temp Pulse Resp B/P (MAP) Pulse Ox O2 Delivery O2 Flow Rate FiO2 05/15/18 20:13 Room Air 05/15/18 20:00 98.8 90 17 126/74 (91) 93 98.8 05/15/18 18:49 98.9 05/15/18 18:21 98.9 05/15/18 16:00 98.9 94 18 126/70 (88) 93 98.9 05/15/18 12:00 96.8 94 18 131/71 (91) 97 96.8 05/15/18 09:11 Room Air 05/15/18 08:14 98.1 05/15/18 08:00 98.0 87 18 133/85 (101) 98 98.0 05/15/18 04:00 98.1 94 19 129/74 (92) 95 98.1 05/15/18 00:00 98.2 98 18 131/71 (91) 94 98.2 Intake and Output 05/14/18 05/15/18 19:00 07:00 Intake Total 210.0 ml 637.5 ml Balance 210.0 ml 637.5 ml IV Total 210.0 ml 637.5 ml # Voids 2 3 Laboratory Tests 05/15/18 07:30: White Blood Count 13.5H, Red Blood Count 4.63, Hemoglobin 13.9, Hematocrit 40.6 , Mean Corpuscular Volume 88, Mean Corpuscular Hemoglobin 30.1, Mean Corpuscular Hemoglobin Concent 34.3, Red Cell Distribution Width 11.1L, Platelet Count 225, Mean Platelet Volume 6.5, Neutrophils (%) (Auto) , Lymphocytes (%) (Auto) , Monocytes (%) (Auto) , Eosinophils (%) (Auto) , Basophils (%) (Auto) , Differential Total Cells Counted 100, Neutrophils % ( Manual) 88H, Lymphocytes % (Manual) 6L, Monocytes % (Manual) 4, Eosinophils % ( Manual) 0, Basophils % (Manual) 0, Band Neutrophils 2, Platelet Estimate Adequate, Platelet Morphology Normal, Prothrombin Time 10.0, Prothromb Time International Ratio 0.9, Activated Partial Thromboplast Time 34H, Sodium Level 138, Potassium Level 3.2L, Chloride Level 102, Carbon Dioxide Level 26, Anion Gap 10, Blood Urea Nitrogen 16, Creatinine 0.6, Estimat Glomerular Filtration Rate > 60, Glucose Level 146H, Calcium Level 8.8, Total Bilirubin 0.7, Aspartate Amino Transf (AST/SGOT) 28, Alanine Aminotransferase (ALT/SGPT) 50, Alkaline Phosphatase 94, C-Reactive Protein, Quantitative > 70.0H, Total Protein 6.9, Albumin 2.5L, Globulin 4.4, Albumin/Globulin Ratio 0.6L Height (Feet): 5 Height (Inches): 4.00 Weight (Pounds): 121 Cardiovascular: regular rhythm Respiratory/Chest: lungs clear Abdomen: soft Nayely Cameron MD May 15, 2018 22:01
[2018-05-15] MEDS: D5NS w/KCl 40mEq 1000ml 1,000 ML IV SCH (22:09)
[2018-05-16] VITALS (11 sets, daily range): BP systolic 110–159; BP diastolic 68–89
--- NOTE | 2018-05-16 01:00 | Progress Note ---
DATE: 05/14/2018 SUBJECTIVE: This is a 67-year-old Chinese speaking female with a history of multiple medical problems, who has been admitted to the hospital due to abdominal pain. In addition, the patient has not been eating for the past several days. She is anxious, stated she is not sleeping at night. She stated the insomnia is a chronic disease like she is suffering from. She is very dysphoric, has low energy and weak, which is a combination of not eating and not sleeping well. PAST PSYCHIATRIC HISTORY: Insomnia and anxiety disorder. PAST MEDICAL HISTORY: Gastrostomy. ALLERGIES: No known drug allergies. SUBSTANCE ABUSE HISTORY: No known history of illicit drug use or alcohol. MENTAL STATUS EXAM: The patient is alert and oriented to times self, place, and situation she is in. Mood is dysphoric. Affect is constricted. Congruent mood. Thought process is concrete. Thought content, no suicidal or homicidal ideation. ASSESSMENT: Savannah I Anxiety disorder, insomnia. Sav[place] II Deferred. Savannah III As above. [place] IV Low. Savannah V 60. PLAN: The patient will be started 7.5 milligram of Remeron. Benjamin Florez M.D. DR: CUCO JOB#: [id number] CC:
--- NOTE | 2018-05-16 01:00 | Progress Note ---
SUBJECTIVE: The patient continues to be anxious, did not sleep last night ____, has low energy. MENTAL STATUS EXAMINATION: The patient is alert and oriented times self, place, and situation she is in. Mood is anxious. Affect is constricted. Congruent mood. Thought process is concrete. Thought content, no suicidal, homicidal ideations. ASSESSMENT: 1. Depression. 2. Anxiety disorder. PLAN: We will continue current medication. Provide the patient with supportive therapy and reality orientation. We will continue to follow and readjust the medications. Benjamin Florez M.D. DR: CUCO JOB#: [id number] CC:
[2018-05-16 05:13] LABS: HEMATOCRIT 36.7 % (37.0-47.0); MEAN CORPUSCULAR VOLUME 87 FL (80-99); PLATELET COUNT 188 K/UL (150-450); RED BLOOD COUNT 4.22 M/UL (4.20-5.40); RED CELL DISTRIBUTION WIDTH 11.1 % (11.6-14.8)
[2018-05-16 05:20] LABS: INR 0.9 (0.9-1.1)
[2018-05-16] MEDS: Piperacillin/Tazobactam 3.375 GM in NS 110 ML IVPB SCH ×2 (05:22→15:15)
[2018-05-16 05:37] LABS: ALANINE AMINOTRANSFERASE 32 U/L (12-78); ALBUMIN 2.1 G/DL (3.4-5.0); ALBUMIN/GLOBULIN RATIO 0.5 (1.0-2.7); ALKALINE PHOSPHATASE 103 U/L (46-116); ANION GAP 8 mmol/L (5-15); ASPARTATE AMINO TRANSFERASE 19 U/L (15-37); BILIRUBIN,TOTAL 0.5 MG/DL (0.2-1.0); BLOOD UREA NITROGEN 7 mg/dL (7-18); CALCIUM 8.4 MG/DL (8.5-10.1); CARBON DIOXIDE 25 MMOL/L (21-32); CHLORIDE 104 MMOL/L (98-107); CREATININE 0.6 MG/DL (0.55-1.30); PHOSPHORUS 1.5 MG/DL (2.5-4.9); POTASSIUM 3.5 MMOL/L (3.5-5.1); SODIUM 137 MMOL/L (136-145)
[2018-05-16] MEDS: D5NS w/KCl 40mEq 1000ml 1,000 ML IV SCH ×2 (06:47→16:49)
[2018-05-16] MEDS ORDERED: Isovue-300 100ml vial INJ SCH (10:00)
[2018-05-16] MEDS ORDERED: Lidocaine 1% Plain 30 ml INJ SCH (10:00)
--- NOTE | 2018-05-16 11:11 | GI Progress Note ---
Assessment/Plan Problems: (1) Common bile duct (CBD) stricture ICD Codes: K83.1 - Obstruction of bile duct SNOMED: 82900913 (2) Cholecystitis ICD Codes: K81.9 - Cholecystitis, unspecified SNOMED: 37421657 Status: unchanged Status Narrative Discussed with Dr. Pereira. Assessment/Plan hx of gastric CA s/p distal gastrectomy and gastrojejunostomy MRCP reviewed >> suggestive cholecystitis. Stricture at the level of ampulla. HIDA scan ordered evaluate ampulla stricture. >> complete cystic duct obstruction. At this time, we cannot perform ERCP here at [facility] given the patients history of gastrectomy. Given the LFTs are normal at this time, the patient will need to be transferred to a tertiary center that can perform a double balloon assisted ERCP to have a stent placed. Follow up surgical recs for cholecystitis >> scheduled for laparoscopic possible open appendectomy with intraoperative cholangiogram pain mgmt IVFs fu labs The patient was seen and examined at bedside and all new and available data was reviewed in the patients chart. I agree with the above findings, impression and plan. (Patient seen earlier today. Signature stamp does not reflect patient encounter time.). - Wale Pereira MD Subjective Gastrointestinal/Abdominal: Reports: abdominal pain Objective Last 24 Hour Vital Signs Date Time Temp Pulse Resp B/P (MAP) Pulse Ox O2 Delivery O2 Flow Rate FiO2 05/16/18 08:00 Room Air 05/16/18 08:00 98.6 63 21 110/69 (83) 98 98.6 05/16/18 04:00 97.7 95 16 132/75 (94) 95 97.7 05/16/18 00:00 97.7 92 19 141/76 (97) 93 97.7 05/15/18 20:13 Room Air 05/15/18 20:00 98.8 90 17 126/74 (91) 93 98.8 05/15/18 18:49 98.9 05/15/18 18:21 98.9 05/15/18 16:00 98.9 94 18 126/70 (88) 93 98.9 05/15/18 12:00 96.8 94 18 131/71 (91) 97 96.8 Intake and Output 05/15/18 05/16/18 18:59 06:59 Intake Total 692.5 ml 967.5 ml Balance 692.5 ml 967.5 ml Intake Oral 30 ml IV Total 692.5 ml 937.5 ml # Voids 1 4 Laboratory Tests Test 05/16/18 04:56 White Blood Count 11.0 K/UL (4.8-10.8) H Red Blood Count 4.22 M/UL (4.20-5.40) Hemoglobin 13.0 G/DL (12.0-16.0) Hematocrit 36.7 % (37.0-47.0) L Mean Corpuscular Volume 87 FL (80-99) Mean Corpuscular Hemoglobin 30.7 PG (27.0-31.0) Mean Corpuscular Hemoglobin Concent 35.4 G/DL (32.0-36.0) Red Cell Distribution Width 11.1 % (11.6-14.8) L Platelet Count 188 K/UL (150-450) Mean Platelet Volume 7.1 FL (6.5-10.1) Neutrophils (%) (Auto) % (45.0-75.0) Lymphocytes (%) (Auto) % (20.0-45.0) Monocytes (%) (Auto) % (1.0-10.0) Eosinophils (%) (Auto) % (0.0-3.0) Basophils (%) (Auto) % (0.0-2.0) Differential Total Cells Counted 100 Neutrophils % (Manual) 91 % (45-75) H Lymphocytes % (Manual) 5 % (20-45) L Monocytes % (Manual) 4 % (1-10) Eosinophils % (Manual) 0 % (0-3) Basophils % (Manual) 0 % (0-2) Band Neutrophils 0 % (0-8) Platelet Estimate Adequate Platelet Morphology Normal Red Blood Cell Morphology Normal Prothrombin Time 9.3 SEC (9.30-11.50) Prothromb Time International Ratio 0.9 (0.9-1.1) Activated Partial Thromboplast Time 34 SEC (23-33) H Sodium Level 137 MMOL/L (136-145) Potassium Level 3.5 MMOL/L (3.5-5.1) Chloride Level 104 MMOL/L (98-107) Carbon Dioxide Level 25 MMOL/L (21-32) Anion Gap 8 mmol/L (5-15) Blood Urea Nitrogen 7 mg/dL (7-18) Creatinine 0.6 MG/DL (0.55-1.30) Estimat Glomerular Filtration Rate > 60 mL/min (>60) Glucose Level 154 MG/DL (74-106) H Hemoglobin A1c 6.2 % (4.3-6.0) H Calcium Level 8.4 MG/DL (8.5-10.1) L Phosphorus Level 1.5 MG/DL (2.5-4.9) L Magnesium Level 2.0 MG/DL (1.8-2.4) Total Bilirubin 0.5 MG/DL (0.2-1.0) Gamma Glutamyl Transpeptidase 58 U/L (5-85) Aspartate Amino Transf (AST/SGOT) 19 U/L (15-37) Alanine Aminotransferase (ALT/SGPT) 32 U/L (12-78) Alkaline Phosphatase 103 U/L (46-116) C-Reactive Protein, Quantitative 31.3 mg/dL (0.00-0.90) H Pro-B-Type Natriuretic Peptide 537 pg/mL (0-125) H Total Protein 6.5 G/DL (6.4-8.2) Albumin 2.1 G/DL (3.4-5.0) L Globulin 4.4 g/dL Albumin/Globulin Ratio 0.5 (1.0-2.7) L Height (Feet): 5 Height (Inches): 4.00 Weight (Pounds): 121 General Appearance: WD/WN, no apparent distress, alert Cardiovascular: normal rate Respiratory/Chest: normal breath sounds, no respiratory distress Abdominal Exam: normal bowel sounds, non tender, soft Extremities: normal range of motion, non-tender Tiffanie Ramos [employer]CH[employer] May 16, 2018 11:11
--- NOTE | 2018-05-16 11:20 | General Surgery Progress Note ---
General Surgery-Progress Note Subjective Additional Comments no acute events. leukocytosis improved. pain improved. no n/v/f/c. lfts nml. imaging reviewed again. discussed care with patient and medical teams. Objective Last 24 Hour Vital Signs Date Time Temp Pulse Resp B/P (MAP) Pulse Ox O2 Delivery O2 Flow Rate FiO2 05/16/18 08:00 Room Air 05/16/18 08:00 98.6 63 21 110/69 (83) 98 98.6 05/16/18 04:00 97.7 95 16 132/75 (94) 95 97.7 05/16/18 00:00 97.7 92 19 141/76 (97) 93 97.7 05/15/18 20:13 Room Air 05/15/18 20:00 98.8 90 17 126/74 (91) 93 98.8 05/15/18 18:49 98.9 05/15/18 18:21 98.9 05/15/18 16:00 98.9 94 18 126/70 (88) 93 98.9 05/15/18 12:00 96.8 94 18 131/71 (91) 97 96.8 I&O Intake and Output 05/15/18 05/16/18 19:00 07:00 Intake Total 692.5 ml 967.5 ml Balance 692.5 ml 967.5 ml Intake Oral 30 ml IV Total 692.5 ml 937.5 ml # Voids 1 4 Drains: none Cardiovascular: RSR Respiratory: clear Abdomen: soft, flat, tenderness, present bowel sounds Extremities: no cyanosis Laboratory Tests Test 05/16/18 04:56 White Blood Count 11.0 K/UL (4.8-10.8) H Red Blood Count 4.22 M/UL (4.20-5.40) Hemoglobin 13.0 G/DL (12.0-16.0) Hematocrit 36.7 % (37.0-47.0) L Mean Corpuscular Volume 87 FL (80-99) Mean Corpuscular Hemoglobin 30.7 PG (27.0-31.0) Mean Corpuscular Hemoglobin Concent 35.4 G/DL (32.0-36.0) Red Cell Distribution Width 11.1 % (11.6-14.8) L Platelet Count 188 K/UL (150-450) Mean Platelet Volume 7.1 FL (6.5-10.1) Neutrophils (%) (Auto) % (45.0-75.0) Lymphocytes (%) (Auto) % (20.0-45.0) Monocytes (%) (Auto) % (1.0-10.0) Eosinophils (%) (Auto) % (0.0-3.0) Basophils (%) (Auto) % (0.0-2.0) Differential Total Cells Counted 100 Neutrophils % (Manual) 91 % (45-75) H Lymphocytes % (Manual) 5 % (20-45) L Monocytes % (Manual) 4 % (1-10) Eosinophils % (Manual) 0 % (0-3) Basophils % (Manual) 0 % (0-2) Band Neutrophils 0 % (0-8) Platelet Estimate Adequate Platelet Morphology Normal Red Blood Cell Morphology Normal Prothrombin Time 9.3 SEC (9.30-11.50) Prothromb Time International Ratio 0.9 (0.9-1.1) Activated Partial Thromboplast Time 34 SEC (23-33) H Sodium Level 137 MMOL/L (136-145) Potassium Level 3.5 MMOL/L (3.5-5.1) Chloride Level 104 MMOL/L (98-107) Carbon Dioxide Level 25 MMOL/L (21-32) Anion Gap 8 mmol/L (5-15) Blood Urea Nitrogen 7 mg/dL (7-18) Creatinine 0.6 MG/DL (0.55-1.30) Estimat Glomerular Filtration Rate > 60 mL/min (>60) Glucose Level 154 MG/DL (74-106) H Hemoglobin A1c 6.2 % (4.3-6.0) H Calcium Level 8.4 MG/DL (8.5-10.1) L Phosphorus Level 1.5 MG/DL (2.5-4.9) L Magnesium Level 2.0 MG/DL (1.8-2.4) Total Bilirubin 0.5 MG/DL (0.2-1.0) Gamma Glutamyl Transpeptidase 58 U/L (5-85) Aspartate Amino Transf (AST/SGOT) 19 U/L (15-37) Alanine Aminotransferase (ALT/SGPT) 32 U/L (12-78) Alkaline Phosphatase 103 U/L (46-116) C-Reactive Protein, Quantitative 31.3 mg/dL (0.00-0.90) H Pro-B-Type Natriuretic Peptide 537 pg/mL (0-125) H Total Protein 6.5 G/DL (6.4-8.2) Albumin 2.1 G/DL (3.4-5.0) L Globulin 4.4 g/dL Albumin/Globulin Ratio 0.5 (1.0-2.7) L Plan Problems: (1) Cholecystitis Assessment & Plan: Acute cholecystitis leukocytosis resolving LFT okay still with pain but improved CT w/ is a large calcified gallstone measuring 14 mm diameter within the gallbladder neck. The gallbladder wall is edematous. There is no significant pericholecystic inflammation, however. The common hepatic duct and common bile duct are massively dilated, common bile duct measuring up to 2.2 cm in diameter. However, no definite downstream obstructive lesion is demonstrated. There is also mild to moderate central intrahepatic biliary ductal dilatation. The dilated common bile duct actually results in extrinsic compression on the main portal vein as well as on the right portal vein. MRCP noted HIDA + NPO IV fluids IV Abx appreciate GI input - agree needs ERCP as priority. unfortunately given prior gastric surgery more complex and needs double scope which we do not have here. needs tertiary center given acute cholecystitis with cystic duct obstruction, gallbladder distention, persistent symptoms, and leukocytosis needs cholecystostomy tube to temporize until ERCP can be performed first then can have definitive treatment with cholecystectomy. do not recommend cholecystectomy until ERCP performed and ampulla and CBD evaluated first for stricture or mass. thank you Gary Rubio May 16, 2018 11:20
[2018-05-16] MEDS ORDERED: Heparin 2000 units/Ns 1000ml 1,000 ML ONE (13:14)
[2018-05-16] MEDS ORDERED: Midazolam 2mg/2ml Inj ONE (13:15)
[2018-05-16] MEDS ORDERED: fentaNYL 100 mcg/2 mL IV ONE (13:15)
--- NOTE | 2018-05-16 14:02 | Moderate Sedation - Procedural ---
Moderate Sedation HPI Home Medication Reported Medications No Known Medications* (NKM - No Known Medications*) ., 0 ., 0 Refills 05/13/18 Patient History Allergies: Coded Allergies: No Known Allergies (Unverified , 05/13/18) Pre-Procedural Mod Sedation Date: May 16, 2018 Pre-Assessment Time: 14:00 Pre-Sedation Assessment: Eval. Immed. Prior to Sed Airway Assessment (Malampati): III Evaluation Hx of untoward rxns to mod sed: No Procedures/Plans: Radiology Plan for Moderate Sedation: Midazolam, Fentanyl ASA Score: II Informed Consent The nature of the procedure/sedation; its benefits; risks and complications; and alternatives (and the risks and benefits of such alternatives) were discussed with the patient (or their legal claims service representative), prior to the procedure. All questions were answered to the patient's (or their legal claims service representative's) satisfaction and the patient (or their legal claims service representative) gave informed consent to the procedure. I attest that I re-evaluated the patient just prior to the surgery and that there has been no change in the patient's H&P, except as documented below: Post Procedure Assessment Post Procedure TIme: 14:20 Communication: No Apparent Limitation Mental Status: Awake Respiration: Unlabored Skin Condition: WNL Adomen: WNL Nausea: NO Vomiting: NO Macario Roberts MD May 16, 2018 14:02
--- NOTE | 2018-05-16 14:02 | Pre-Procedure Note/Attestation ---
Pre-Procedure Note/Attestation Complete Prior to Procedure Planned Procedure: not applicable Procedure Narrative: Cholecystostomy Indications for Procedure Pre-Operative Diagnosis: acute cholecystitis Attestation I attest that I discussed the nature of the procedure; its benefits; risks and complications; and alternatives (and the risks and benefits of such alternatives ), prior to the procedure, with the patient (or the patient's legal advertising account representative). I attest that, if there was a reasonable possibility of needing a blood transfusion, the patient (or the patient's legal advertising account representative) was given the [facility] standardized written summary, pursuant to the Felipe [place] Blood Safety Act ([place] Health and Safety Code # 1645, as amended). I attest that I re-evaluated the patient just prior to the surgery and that there has been no change in the patient's H&P, except as documented below: Discussed with pt. with crop adjuster. Discussed by phone with with crop adjuster Macario Roberts MD May 16, 2018 14:02
--- NOTE | 2018-05-16 14:29 | Nephrology Progress Note ---
Assessment/Plan Problem List: (1) Cholecystitis (2) Hypokalemia (3) UTI (urinary tract infection) Assessment Cholecystitis WBCs down Cholelithiasis UTI History of stomach cancer Plan IV Fluid and K Continue Zosyn Will f/u HIDA scan IV Pepcid per consultants Subjective ROS Limited/Unobtainable: No Constitutional: Reports: malaise Objective Objective Last 24 Hour Vital Signs Date Time Temp Pulse Resp B/P (MAP) Pulse Ox O2 Delivery O2 Flow Rate FiO2 05/16/18 14:20 86 18 155/86 (109) 99 05/16/18 14:15 87 18 137/87 (104) 98 05/16/18 14:10 88 18 119/78 (92) 98 05/16/18 13:08 98 16 2.0 05/16/18 11:50 97.3 87 18 139/68 (91) 95 97.3 05/16/18 08:00 Room Air 05/16/18 08:00 98.6 63 21 110/69 (83) 98 98.6 05/16/18 04:00 97.7 95 16 132/75 (94) 95 97.7 05/16/18 00:00 97.7 92 19 141/76 (97) 93 97.7 05/15/18 20:13 Room Air 05/15/18 20:00 98.8 90 17 126/74 (91) 93 98.8 05/15/18 18:49 98.9 05/15/18 18:21 98.9 05/15/18 16:00 98.9 94 18 126/70 (88) 93 98.9 Intake and Output 05/15/18 05/16/18 18:59 06:59 Intake Total 692.5 ml 967.5 ml Balance 692.5 ml 967.5 ml Intake Oral 30 ml IV Total 692.5 ml 937.5 ml # Voids 1 4 Laboratory Tests 05/16/18 04:56: White Blood Count 11.0H, Red Blood Count 4.22, Hemoglobin 13.0, Hematocrit 36.7L , Mean Corpuscular Volume 87, Mean Corpuscular Hemoglobin 30.7, Mean Corpuscular Hemoglobin Concent 35.4, Red Cell Distribution Width 11.1L, Platelet Count 188, Mean Platelet Volume 7.1, Neutrophils (%) (Auto) , Lymphocytes (%) (Auto) , Monocytes (%) (Auto) , Eosinophils (%) (Auto) , Basophils (%) (Auto) , Differential Total Cells Counted 100, Neutrophils % ( Manual) 91H, Lymphocytes % (Manual) 5L, Monocytes % (Manual) 4, Eosinophils % ( Manual) 0, Basophils % (Manual) 0, Band Neutrophils 0, Platelet Estimate Adequate, Platelet Morphology Normal, Red Blood Cell Morphology Normal, Prothrombin Time 9.3, Prothromb Time International Ratio 0.9, Activated Partial Thromboplast Time 34H, Sodium Level 137, Potassium Level 3.5, Chloride Level 104 , Carbon Dioxide Level 25, Anion Gap 8, Blood Urea Nitrogen 7, Creatinine 0.6, Estimat Glomerular Filtration Rate > 60, Glucose Level 154H, Hemoglobin A1c 6.2H , Calcium Level 8.4L, Phosphorus Level 1.5L, Magnesium Level 2.0, Total Bilirubin 0.5, Gamma Glutamyl Transpeptidase 58, Aspartate Amino Transf (AST/ SGOT) 19, Alanine Aminotransferase (ALT/SGPT) 32, Alkaline Phosphatase 103, C- Reactive Protein, Quantitative 31.3H, Pro-B-Type Natriuretic Peptide 537H, Total Protein 6.5, Albumin 2.1L, Globulin 4.4, Albumin/Globulin Ratio 0.5L Height (Feet): 5 Height (Inches): 4.00 Weight (Pounds): 121 Huber Byers MD May 16, 2018 14:29
--- NOTE | 2018-05-16 15:10 | Infectious Diseases Prog Note ---
Assessment/Plan Assessment/Plan A; Cholecystitis Cholelithiasis UTI History of stomach cancer s/p Cholecystomy tube placement P: Continue Zosyn Subjective ROS Limited/Unobtainable: Yes Constitutional: Reports: other - feels hungry Gastrointestinal/Abdominal: Reports: other - had cholecystomy tube placement Allergies: Coded Allergies: No Known Allergies (Unverified , 05/13/18) Objective Vital Signs Last 24 Hour Vital Signs Date Time Temp Pulse Resp B/P (MAP) Pulse Ox O2 Delivery O2 Flow Rate FiO2 05/16/18 14:30 91 18 157/89 (111) 99 05/16/18 14:25 91 18 159/85 (109) 99 05/16/18 14:20 86 18 155/86 (109) 99 05/16/18 14:15 87 18 137/87 (104) 98 05/16/18 14:10 88 18 119/78 (92) 98 05/16/18 13:08 98 16 2.0 05/16/18 11:50 97.3 87 18 139/68 (91) 95 97.3 05/16/18 08:00 Room Air 05/16/18 08:00 98.6 63 21 110/69 (83) 98 98.6 05/16/18 04:00 97.7 95 16 132/75 (94) 95 97.7 05/16/18 00:00 97.7 92 19 141/76 (97) 93 97.7 05/15/18 20:13 Room Air 05/15/18 20:00 98.8 90 17 126/74 (91) 93 98.8 05/15/18 18:49 98.9 05/15/18 18:21 98.9 05/15/18 16:00 98.9 94 18 126/70 (88) 93 98.9 Height (Feet): 5 Height (Inches): 4.00 Weight (Pounds): 121 General Appearance: no acute distress HEENT: mucous membranes moist Respiratory/Chest: lungs clear Cardiovascular: normal rate Abdomen: soft, non tender, other - R upper quadrant, Cholecystostomy tue Extremities: no edema Neurologic/Psychiatric: alert, responsive Laboratory Tests Test 05/16/18 04:56 White Blood Count 11.0 K/UL (4.8-10.8) H Red Blood Count 4.22 M/UL (4.20-5.40) Hemoglobin 13.0 G/DL (12.0-16.0) Hematocrit 36.7 % (37.0-47.0) L Mean Corpuscular Volume 87 FL (80-99) Mean Corpuscular Hemoglobin 30.7 PG (27.0-31.0) Mean Corpuscular Hemoglobin Concent 35.4 G/DL (32.0-36.0) Red Cell Distribution Width 11.1 % (11.6-14.8) L Platelet Count 188 K/UL (150-450) Mean Platelet Volume 7.1 FL (6.5-10.1) Neutrophils (%) (Auto) % (45.0-75.0) Lymphocytes (%) (Auto) % (20.0-45.0) Monocytes (%) (Auto) % (1.0-10.0) Eosinophils (%) (Auto) % (0.0-3.0) Basophils (%) (Auto) % (0.0-2.0) Differential Total Cells Counted 100 Neutrophils % (Manual) 91 % (45-75) H Lymphocytes % (Manual) 5 % (20-45) L Monocytes % (Manual) 4 % (1-10) Eosinophils % (Manual) 0 % (0-3) Basophils % (Manual) 0 % (0-2) Band Neutrophils 0 % (0-8) Platelet Estimate Adequate Platelet Morphology Normal Red Blood Cell Morphology Normal Prothrombin Time 9.3 SEC (9.30-11.50) Prothromb Time International Ratio 0.9 (0.9-1.1) Activated Partial Thromboplast Time 34 SEC (23-33) H Sodium Level 137 MMOL/L (136-145) Potassium Level 3.5 MMOL/L (3.5-5.1) Chloride Level 104 MMOL/L (98-107) Carbon Dioxide Level 25 MMOL/L (21-32) Anion Gap 8 mmol/L (5-15) Blood Urea Nitrogen 7 mg/dL (7-18) Creatinine 0.6 MG/DL (0.55-1.30) Estimat Glomerular Filtration Rate > 60 mL/min (>60) Glucose Level 154 MG/DL (74-106) H Hemoglobin A1c 6.2 % (4.3-6.0) H Calcium Level 8.4 MG/DL (8.5-10.1) L Phosphorus Level 1.5 MG/DL (2.5-4.9) L Magnesium Level 2.0 MG/DL (1.8-2.4) Total Bilirubin 0.5 MG/DL (0.2-1.0) Gamma Glutamyl Transpeptidase 58 U/L (5-85) Aspartate Amino Transf (AST/SGOT) 19 U/L (15-37) Alanine Aminotransferase (ALT/SGPT) 32 U/L (12-78) Alkaline Phosphatase 103 U/L (46-116) C-Reactive Protein, Quantitative 31.3 mg/dL (0.00-0.90) H Pro-B-Type Natriuretic Peptide 537 pg/mL (0-125) H Total Protein 6.5 G/DL (6.4-8.2) Albumin 2.1 G/DL (3.4-5.0) L Globulin 4.4 g/dL Albumin/Globulin Ratio 0.5 (1.0-2.7) L Current Medications Medications (Trade) Dose Ordered Sig/Ryan Route PRN Reason Start Time Stop Time Status Last Admin Dose Admin Dextrose/ Electrolytes 1,000 ml @ 100 mls/hr Q10H IV 05/15/18 20:00 06/14/18 19:59 05/16/18 06:47 Famotidine (Pepcid I.v.) 20 mg Q12HR IVP 05/15/18 21:00 06/14/18 20:59 05/16/18 08:57 Mirtazapine (Remeron) 7.5 mg BEDTIME ORAL 05/15/18 21:00 06/14/18 20:59 05/15/18 20:17 Morphine Sulfate (Morphine Sulfate) 2 mg Q4H PRN IVP For Pain 05/13/18 18:15 05/20/18 18:14 05/15/18 18:21 Ondansetron HCl (Zofran) 4 mg Q6H PRN IVP Nausea & Vomiting 05/13/18 18:45 06/12/18 18:44 05/15/18 11:25 Piperacillin Sod/ Tazobactam Sod 3.375 gm/Sodium Chloride 110 ml @ 27.5 mls/hr EVERY 8 HOURS IVPB 05/13/18 22:00 05/18/18 21:59 05/16/18 05:22 Potassium Phosphate 30 mm/ Sodium Chloride 285 ml @ 47.5 mls/hr ONCE ONCE IVPB 05/16/18 13:15 05/16/18 19:14 Yusef Velez MD May 16, 2018 15:10
--- NOTE | 2018-05-16 15:25 | Brief Operative Note ---
Immediate Post Operative Note Operative Note Pre-op Diagnosis: acute cholecystitis Procedure: percutaneous cholecystostomy Findings: consistent w/pre-op dx studies Surgeon: Scott ROBERTS Anesthesia: local Specimen: yes - about 200 ml cloudy brown bile aspirated, specimen sent to lab Complications: none Condition: stable Fluids: none Drains: other - 7 F pigtail Implant(s) used?: No Macario Roberts MD May 16, 2018 15:25
[2018-05-16] MEDS ORDERED: Potassium Phosphate 30 MM in NS 275 ML IV SCH (16:00)
--- NOTE | 2018-05-16 16:34 | Diagnostic Imaging Report ---
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 Rubio. Informed consent obtained prior to commencement of the procedure from the patient, as well as discussed with patient's . Procedural timeout performed. Total sterile technique, including sterile gloves and hand hygiene, hat, mask, sterile gown, large sterile drape, and preparation with 2% chlorhexidine utilized. Local anesthesia with 1% lidocaine. Initially, the medial border of the gallbladder and adjacent liver was anesthetized, but is approach was deemed too risky due to the proximity of the adjacent colon. Lateral approach therefore utilized. Local anesthesia, both deep and superficial, with partial lidocaine. Using trocar technique, a 7 [place] Tompkins-Monet catheter was inserted into the gallbladder lumen using a transhepatic approach under direct ultrasonic supervision. The catheter was fed off of the stiffener and trocar and the pigtail was formed. Total of approximately 200 mL of cloudy but thin brown fluid/bile aspirated. Complete collapse of the gallbladder was observed. A specimen was sent to the lab for microbial analysis. Small amount of contrast was injected under fluoroscopic supervision, confirming intracholecystic position of the tube. This was easily be aspirated. The patient tolerated the procedure well, without immediate complication. Total fluoroscopy time 0.3 minutes. Total dose area product 17 dGycm2 Number of images: One Comparison: Reference made to hepatobiliary scan dated 05/15/2018, MRI dated 05/13/2018, CT scan of the abdomen dated 05/13/2018 Findings: Preprocedure sonography demonstrates thickened gallbladder wall. Gallbladder stones and sludge noted. Gallbladder wall thickening is noted. The large gallbladder neck stone observed on recent CT and MRI are not clearly evident sonographically, however. Completion image after contrast injection demonstrates catheter and contrast within a cholecystiform contained structure Impression: Apparently successful percutaneous transhepatic cholecystostomy, as described
--- NOTE | 2018-05-16 16:51 | General Progress Note ---
Assessment/Plan Status: stable Assessment/Plan Assessment and Recs: # Gastric cancer, s/p surgery in the past (20 y ago), currently with no evidence of disease --> imaging to be reviewed, with CT, Evidence of prior distal gastrectomy and gastrojejunostomy. Per discussion with ER physician, patient has history of gastric surgery for cancer. --> CEA 1.5, is wnl --> 05/16: successful percutaneous transhepatic cholecystostomy # Leukocytosis -- had this earlier prior to admission potentially related to infection --> appears to be improving # Cholecystitis - with the history exam and presentation, multiple differentials considered, including but not limited to appendicitis, gastritis, cholecystitis, diverticulitis --> antibiotics as needed --> surgery evaluation if requires choly --> Given the LFTs are normal at this time, the patient will need to be transferred to a tertiary center that can perform a double balloon assisted ERCP to have a stent placed. # Abdominal pain with nausea --> supportive measures and surgery to eval --> today better Appreciate consultation greatly! Subjective Date patient seen: May 16, 2018 Allergies: Coded Allergies: No Known Allergies (Unverified , 05/13/18) All Systems: reviewed and negative except above Subjective No acute events. VS stable. Percutaneous transhepatic cholecystostomy for today. Objective Last 24 Hour Vital Signs Date Time Temp Pulse Resp B/P (MAP) Pulse Ox O2 Delivery O2 Flow Rate FiO2 05/16/18 14:30 91 18 157/89 (111) 99 05/16/18 14:25 91 18 159/85 (109) 99 05/16/18 14:20 86 18 155/86 (109) 99 05/16/18 14:15 87 18 137/87 (104) 98 05/16/18 14:10 88 18 119/78 (92) 98 05/16/18 13:08 98 16 2.0 05/16/18 11:50 97.3 87 18 139/68 (91) 95 97.3 05/16/18 08:00 Room Air 05/16/18 08:00 98.6 63 21 110/69 (83) 98 98.6 05/16/18 04:00 97.7 95 16 132/75 (94) 95 97.7 05/16/18 00:00 97.7 92 19 141/76 (97) 93 97.7 05/15/18 20:13 Room Air 05/15/18 20:00 98.8 90 17 126/74 (91) 93 98.8 05/15/18 18:49 98.9 05/15/18 18:21 98.9 Intake and Output 05/15/18 05/16/18 18:59 06:59 Intake Total 692.5 ml 967.5 ml Balance 692.5 ml 967.5 ml Intake Oral 30 ml IV Total 692.5 ml 937.5 ml # Voids 1 4 Laboratory Tests 05/16/18 04:56: White Blood Count 11.0H, Red Blood Count 4.22, Hemoglobin 13.0, Hematocrit 36.7L , Mean Corpuscular Volume 87, Mean Corpuscular Hemoglobin 30.7, Mean Corpuscular Hemoglobin Concent 35.4, Red Cell Distribution Width 11.1L, Platelet Count 188, Mean Platelet Volume 7.1, Neutrophils (%) (Auto) , Lymphocytes (%) (Auto) , Monocytes (%) (Auto) , Eosinophils (%) (Auto) , Basophils (%) (Auto) , Differential Total Cells Counted 100, Neutrophils % ( Manual) 91H, Lymphocytes % (Manual) 5L, Monocytes % (Manual) 4, Eosinophils % ( Manual) 0, Basophils % (Manual) 0, Band Neutrophils 0, Platelet Estimate Adequate, Platelet Morphology Normal, Red Blood Cell Morphology Normal, Prothrombin Time 9.3, Prothromb Time International Ratio 0.9, Activated Partial Thromboplast Time 34H, Sodium Level 137, Potassium Level 3.5, Chloride Level 104 , Carbon Dioxide Level 25, Anion Gap 8, Blood Urea Nitrogen 7, Creatinine 0.6, Estimat Glomerular Filtration Rate > 60, Glucose Level 154H, Hemoglobin A1c 6.2H , Calcium Level 8.4L, Phosphorus Level 1.5L, Magnesium Level 2.0, Total Bilirubin 0.5, Gamma Glutamyl Transpeptidase 58, Aspartate Amino Transf (AST/ SGOT) 19, Alanine Aminotransferase (ALT/SGPT) 32, Alkaline Phosphatase 103, C- Reactive Protein, Quantitative 31.3H, Pro-B-Type Natriuretic Peptide 537H, Total Protein 6.5, Albumin 2.1L, Globulin 4.4, Albumin/Globulin Ratio 0.5L Height (Feet): 5 Height (Inches): 4.00 Weight (Pounds): 121 General Appearance: no apparent distress EENT: PERRL/EOMI Neck: normal alignment Cardiovascular: normal peripheral pulses Respiratory/Chest: no respiratory distress Abdomen: soft Reginald Abdalla MD May 16, 2018 16:51
--- NOTE | 2018-05-16 22:12 | General Progress Note ---
Assessment/Plan Status: stable Assessment/Plan anxiety d/o insomnia remeron 7.5mg qhs Subjective Date patient seen: May 16, 2018 Neurologic/Psychiatric: Reports: anxiety, depressed, emotional problems Allergies: Coded Allergies: No Known Allergies (Unverified , 05/13/18) Objective Last 24 Hour Vital Signs Date Time Temp Pulse Resp B/P (MAP) Pulse Ox O2 Delivery O2 Flow Rate FiO2 05/16/18 16:00 98.2 92 20 144/82 (102) 97 98.2 05/16/18 14:30 91 18 157/89 (111) 99 05/16/18 14:25 91 18 159/85 (109) 99 05/16/18 14:20 86 18 155/86 (109) 99 05/16/18 14:15 87 18 137/87 (104) 98 05/16/18 14:10 88 18 119/78 (92) 98 05/16/18 13:08 98 16 2.0 05/16/18 11:50 97.3 87 18 139/68 (91) 95 97.3 05/16/18 08:00 Room Air 05/16/18 08:00 98.6 63 21 110/69 (83) 98 98.6 05/16/18 04:00 97.7 95 16 132/75 (94) 95 97.7 05/16/18 00:00 97.7 92 19 141/76 (97) 93 97.7 Intake and Output 05/15/18 05/16/18 19:00 07:00 Intake Total 692.5 ml 967.5 ml Balance 692.5 ml 967.5 ml Intake Oral 30 ml IV Total 692.5 ml 937.5 ml # Voids 1 4 Laboratory Tests 05/16/18 04:56: White Blood Count 11.0H, Red Blood Count 4.22, Hemoglobin 13.0, Hematocrit 36.7L , Mean Corpuscular Volume 87, Mean Corpuscular Hemoglobin 30.7, Mean Corpuscular Hemoglobin Concent 35.4, Red Cell Distribution Width 11.1L, Platelet Count 188, Mean Platelet Volume 7.1, Neutrophils (%) (Auto) , Lymphocytes (%) (Auto) , Monocytes (%) (Auto) , Eosinophils (%) (Auto) , Basophils (%) (Auto) , Differential Total Cells Counted 100, Neutrophils % ( Manual) 91H, Lymphocytes % (Manual) 5L, Monocytes % (Manual) 4, Eosinophils % ( Manual) 0, Basophils % (Manual) 0, Band Neutrophils 0, Platelet Estimate Adequate, Platelet Morphology Normal, Red Blood Cell Morphology Normal, Prothrombin Time 9.3, Prothromb Time International Ratio 0.9, Activated Partial Thromboplast Time 34H, Sodium Level 137, Potassium Level 3.5, Chloride Level 104 , Carbon Dioxide Level 25, Anion Gap 8, Blood Urea Nitrogen 7, Creatinine 0.6, Estimat Glomerular Filtration Rate > 60, Glucose Level 154H, Hemoglobin A1c 6.2H , Calcium Level 8.4L, Phosphorus Level 1.5L, Magnesium Level 2.0, Total Bilirubin 0.5, Gamma Glutamyl Transpeptidase 58, Aspartate Amino Transf (AST/ SGOT) 19, Alanine Aminotransferase (ALT/SGPT) 32, Alkaline Phosphatase 103, C- Reactive Protein, Quantitative 31.3H, Pro-B-Type Natriuretic Peptide 537H, Total Protein 6.5, Albumin 2.1L, Globulin 4.4, Albumin/Globulin Ratio 0.5L Height (Feet): 5 Height (Inches): 4.00 Weight (Pounds): 121 General Appearance: no apparent distress, alert Neurologic: oriented x 3, responsive, depressed affect Benjamin Florez MD May 16, 2018 22:12
--- NOTE | 2018-05-17 11:34 | Discharge Summary ---
Discharge Summary Discharge Summary _ DATE OF ADMISSION: 05/13/2018 DATE OF DISCHARGE: 05/16/2018 REASON FOR ADMISSION: 67 years old male with past medical history of gastric cance, r status post gastrectomy and gastrojejunostomy, presented to emergency department with complaint of epigastric abdominal pain, nausea and vomiting for the past 2 days. No fever or chills. No diarrhea. No chest pain or shortness of breath. Patient reported flank discomfort , but denied dysuria. Vital signs overall were stable. Laboratory workup revealed no leukocytosis, stable hemoglobin and hematocrit. Stable renal parameters, LFT and lipase. Troponin negative. Urinalysis with evidence of pyuria, + 1 protein, + 2 ketones. . EKG revealed normal sinus rhythm, no acute ischemic changes Chest x-ray revealed no acute cardiopulmonary pathology. CT of the abdomen and pelvis revealed dilated gallbladder with pericholecystic edema , stone in the gallbladder neck with appearance raising concern for acute cholecystitis. P Evidence of prior distal gastrectomy and gastrojejunostomy. Patient admitted with diagnoses of abdominal pain, acute cholecystitis. CONSULTANTS: ID specialist Dr. González Thornton GI specialist Dr. Pereira administration assistant Dr. Byers certified master safe technician/oncologist Dr. Abdalla surgery Dr. Rubio psychiatrist [facility] COURSE: Patient admitted. Patient was kept NPO and started on IV fluids and empiric antibiotics. GI and surgery consult were requested. Pain management was addressed . Supportive care provided. Abdominal MRI revealed gallbladder neck stone with gallbladder distention and edema of the gallbladder wall ,suspicious for acute cholecystitis. Stricture at the level of the ampulla was suspected HIDA scan showed cystic duct obstruction. consistent with acute cholecystitis. Per GI specialist, unable to perform ERCP at [facility], given that patient had history of gastrectomy. Given normal LFT , patient will need to be transferred to tertiary center to perform double-balloon assisted ERCP to have a stent placed. Per surgeon, patient will need cholecystostomy tube to temporize until ERCP would be performed first and then patient will need definitive treatment with cholecystectomy . Surgeon did not recommend cholecystectomy before ERCP , since ampulla and common bile duct needed to be evaluated first for stricture . Patient undergone on successful percutaneous transhepatic cholecystostomy by interventional radiology. Patient was on antibiotic . ID specialist closely followed. Urine culture revealed Citrobacter and Escherichia coli ; gallbladder fluid showed gram-negative bacilli. Renal parameters and electrolytes were closely monitored, electrolytes corrected as needed, and nephrotoxins were avoided. GI prophylaxis provided. Cvt Tech/oncologist followed. Patient undergone surgery for gastric cancer about 20 years ago, currently no evidence of disease. Imaging was personally reviewed by oncologist. CEA within normal limits . Pain management was addressed and controlled. Psychiatrist seen and evaluated patient. Per psychiatrist patient had anxiety disorder and insomnia. Patient was started on Remeron. Patient decided to sign AGAINST MEDICAL ADVICE. The risks and consequences of signing AGAINST MEDICAL ADVICE were discussed with patient in detail. Patient verbalized understanding, nevertheless signed AMA form and left. FINAL DIAGNOSES: cholelithiasis acute cholecystitis status post percutaneous transhepatic cholecystostomy tube placement history of stomach cancer with gastrectomy and gastrojejunostomy common bile duct / ampulla stricture urinary tract infection with Citrobacter and Escherichia coli anxiety disorder insomnia I have been assigned to dictate discharge summary for this account. I was not involved in the patient's management. Sita Mims NP May 17, 2018 11:34
== END 2018-05-16 18:20 | disposition left against medical advice (07) | DRG 445 ==
LOC: EDBD 10:58 → EMR 12:40 → 4E 14:08 → EDBEDREQ 15:03 → 4E 05-16 06:12
PROC: 0F9430Z Drainage of Gallbladder with Drainage Device, Percutaneous Approach (ICD-10-PCS; principal; 2018-05-13)
PROC: 0F943ZX Drainage of Gallbladder, Percutaneous Approach, Diagnostic (ICD-10-PCS; principal; 2018-05-13)
DX: K80.01 Calculus of gallbladder with acute cholecystitis with obstruction (principal); K80.51 Calculus of bile duct without cholangitis or cholecystitis with obstruction; N39.0 Urinary tract infection, site not specified; Z85.028 Personal history of other malignant neoplasm of stomach; Z90.3 Acquired absence of stomach [part of]; B96.20 Unspecified Escherichia coli [E. coli] as the cause of diseases classified elsewhere; B96.89 Other specified bacterial agents as the cause of diseases classified elsewhere; F41.9 Anxiety disorder, unspecified; G47.00 Insomnia, unspecified; E87.6 Hypokalemia
CPT/HCPCS: 36415; 71045; 74177; 74181; 75989; 78266; 80053; 81003; 82378; 82550; 82553; 82977; 83036; 83690; 83735; 83880; 84100; 84484; 85007; 85025; 85610; 85730; 86140; 87070; 87075; 87086; 87181; 87205; 93005; 96365; 96368; 96375; 96376; 99285; J2250; J2405